=== PATIENT | female | born 2005 | race African-American/Black ===

== ENCOUNTER 2025-01-27 19:55 | Observation (INO) | payer OTHER, SELFPAY ==
--- OUTSIDE RECORDS SUMMARY | 2024-12-28 08:30 | XMS_ITS ---
Author Organization [facility] in [place] Address [address] [place] [address] Care Team Providers Care Plate Grainer Name Role Phone -None, Unknown Primary Care Provider Padmini Loja Unavailable [phone] REASON FOR VISIT New PT Hem Encounters Encounter Location Date Provider Diagnosis [facility] [place] [address] 12/28/2024 Padmini Oliva Plan Of Treatment No Information Progress Notes * Mirna GUPTAhDOB:2005 (19 yo F)Acc No.[id number]:12/28/2024 UNLOCKED PROGRESS NOTE Progress Notes Patient: Abigail LIRA :?Padmini Oliva M.D.:2005???Age:19 Y ???Sex:FemaleDate:12/28/2024Phone:[phone]:[address] [place], [place] [id number]:Unknown -None Subjective: * Chief Complaints: * 1 . New PT Hem. * Medical History: Objective: * Vitals: Assessment: Plan: * Treatment: * * Electronic signature of Padmini Oliva MD, [id number] on 01/27/2025 at 08:12 PM ESTSign off status: PendingVisit Status:?CANC (Cancelled) * Provider: Jose Oliva M.D. Date: Generated for Printing/Faxing/eTransmitting on:?01/27/2025 08:12 PM EST
--- OUTSIDE RECORDS SUMMARY | 2025-01-25 23:17 | XMS_ITS | Continuity of Care Document ---
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 Name Role Phone DavidLashawn Camairllo Primary Care Provider Nora Smith DO Attending Provider Kumar Freeman DO Attending Provider Chrissy Cantor MD Emergency Provider [phone] Care Teams Patient Care Team Team Status: Active Member Role/Relationship Status Dates Lashawn Marie DO Primary Care Provider Active Visit Care Team Team Status: Inactive Member Role/Relationship Status Dates Lashawn Marie DO Primary Care Provider Active Start: December 13, 2024 End: December 13, 2024KatLukasz Araujo ProviderActiveStart: December 13, 2024 End: December 13, 2024 Visit Care Team Team Status: Inactive Member Role/Relationship Status Dates Lashawn Marie DO Primary Care Provider Active Start: January 06, 2025 End: January 07, 2025Lukasz Trinh ProviderActiveStart: January 06, 2025 End: January 07, 2025 Patient Care Team Team Status: Inactive Member Role/Relationship Status Dates Lashawn Marie DO Primary Care Provider Active Start: January 26, 2025 End: January 26mariama Cantor MDEmerchi [facility] ProviderActiveStart: January 26, 2025 End: January 26, 2025 Chief Complaint and Reason for Visit Chief Complaint Admit Date 30 wks iup-leaking fluid December 13, 2024 7:31pm 33 wks 5 days-low abd pain-cramping Octo carlton 2024 10:27pm Rash January 26, 2025 2:08am Allergies, Adverse Reactions, Alerts Allergen Type Severity Reaction Last Updated Verified Status Cephalosporins Allergy Unknown hives January 26, 2025 2:21a m Yes Active Social History Smoking Status Status Start Date End Date Date of Observa tion Never smoked tobacco (finding) January 26, 2025 2:21am Observation Status Observation Response Date of Response Legal Sex Female (finding) Sex [facility]Pregnancy StatusYNovember 2024 Family History Relationship Condition Age at Onset Recorded Date/T lyudmila grandparent Unknown grandparentDeceasedUnknowngrandparentDeceasedUnknown Problems Active Problems Problem Diagnosis/Recorded Date Onset Date Status C omments Rash January 26, 2025 4:05am Unknown Active Inactive/Resolved Problems Problem Diagnosis/Recorded Date Onset Date Status C omments Vaginal bleeding in patient after first trimester with persistent low lying placenta September 19, 2024 11:28pm Unknown Resolved COVID-19 virus infectionSeptember 2020 12:37amUnknownResolvedProblem List clean-up per request of Phys. EHR CmteSprain of wristFebruary 2019 4:34pm UnknownResolvedProblem List clean-up per request of Phys. EHR CmteKnee sprain February 23, 2017 6:29pmUnknownResolvedProblem List clean-up per request of Phys. EHR CmteKnee sprainSeptember 2018 1:07pmUnknownResolvedProblem List clean-up per request of Phys. EHR CmteMyalgiaJuly 2020 1:21pmUnknown ResolvedProblem List clean-up per request of Phys. EHR CmteAcute viral syndrome January 22, 2019 2:08amUnknownResolvedProblem List clean-up per request of Phys. EHR CmteURI (upper respiratory infection)December 02, 2018 10:02pm UnknownResolvedProblem List clean-up per request of Phys. EHR CmteURI (upper respiratory infection)April 16, 2019 7:30pmUnknownResolvedProblem List clean-up per request of Phys. EHR CmteCoughNovember 2018 2:08amUnknown ResolvedProblem List clean-up per request of Phys. EHR CmteCoughJanuary 2019 7:56pmUnknownResolvedProblem List clean-up per request of Phys. EHR Cmte Non-cardiac chest painJanuary 2020 10:09pmUnknownResolvedProblem List clean-up per request of Phys. EHR CmtePain of round ligament affecting , antepartumJune 2024 3:36amUnknownResolvedMusculoskeletal chest painJanuary 2019 7:56pmUnknownResolvedProblem List clean-up per request of Phys. EHR CmteLeft knee painSeptember 2023 5:13pmUnknownResolvedAdverse reaction to eote-eyb-zcgstca medicationJuly 2023 11:55amUnknownResolved Contusion of noseOctober 2019 9:31pmUnknownResolvedProblem List clean-up per request of Phys. EHR CmteAnkle sprain and strainAugust 2018 10:14pm UnknownResolvedProblem List clean-up per request of Phys. EHR CmteAbdominal pain Luna 2023 10:58pmUnknownResolvedConstipationJanuary 2017 9:36pm UnknownResolvedProblem List clean-up per request of Phys. EHR CmteHemorrhagic cyst of right ovaryOctober 2022 2:02amUnknownResolvedAsthmaJanuary 2020 10:09pmUnknownResolvedProblem List clean-up per request of Phys. EHR Cmte Contusion of hand, rightJune 2021 9:12pmUnknownResolvedProblem List clean- up per request of Phys. EHR CmteRight ankle sprainOctober 2020 12:06am UnknownResolvedProblem List clean-up per request of Phys. EHR CmteRight ankle sprainOctober 2023 4:22pmUnknownResolvedForearm sprainAugust 2019 5:39pmUnknownResolvedProblem List clean-up per request of Phys. EHR CmteFoot sprainApril 2018 12:01amUnknownResolvedProblem List clean-up per request of Phys. EHR Cmte Medications Medication Status Dose Units Route Directions Qty Days Refills S tart Date Stop Date End Date Reason(s) Instructions Adherence Ibuprofen 400 mg tablet Discontinued 400 MG PO every 6 to 8 hours as needed for pain 20 0October 2017 11:00pmFebruary 10, 2018 11:42pmAlbuterol Sulfate 90 mcg/actuation Aerosol Powdr Breath FdshpgxvkUqauhfgpbvcq3XMVPPJSNDPWFQIRKEI 4-6 HOURS as needed for Shortness Of BreathSept2018 11:002018 11:01pmFluticasone Propionate (Flonase Allergy Relief) 50 mcg/actuation spray,tglpvixjokHowzdvjfsfmn0TPGXKCGUTPLVYPYY34B as needed for nasal congestion 19.80Se2018 11:00pmJanuary 21, 2019 11:01pmadminister into each nostrilAlbuterol Sulfate 90 mcg/actuation Hfa Aerosol MpjgqydJhqplncsicik8BHNJ VKGDYJPYHRB4R as needed for Shortness Of BreathDecember 2018 12:00amJune 2021 7:41pmIbuprofen 600 mg zoafciIioytocuhzoe916VIGZB0L as needed for tqau471Xsozgyq 2020 11:00pmJune 2021 7:41pmIbuprofen 600 mg Tablet Tkgrxvpwlhvr290DYMIVkixn 6 hours as needed for Ouci130Wpnz 2021 11:00pm July 12, 2023 7:16pmdo not exceed 4 doses in a 24 hour periodDiclofenac Sodium 1 % xijYxvyrx4YTHGMQWGLBtik times bkfod2233YajtdejsjNovember 21, 2023 11:00pm apply to single knee, ankle, foot; for foot includes sole/toes/top of foot UnknownAlbuterol Sulfate 90 mcg/actuation Hfa Aerosol InhalerDiscontinued February 23, 2017 12:00amJanuary 2017 7:45pmBenzonatate (Tessalon Perles) 100 mg RelfpvpHaxbknjnwefl555FWQQXqvuf times daily as needed for Cough12 0November 2018 12:00amNovember 2018 4:10pmAlbuterol Sulfate 90 mcg/actuation HFA aerosol sytnylfHihgzfptxshm8WAHDLDBMCCLRWLE9E as needed for shortness of breath or frmgtgrm201Qjaaypb 2019 12:00amJanuary 2019 6:24pmIbuprofen 800 mg uqkifyZlxrnvtcnwga813LGZXQbfsy times daily as needed for Nzld760Uukcwjl 2022 11:00pmApril 2023 7:16pmHydrocodone- Acetaminophen 5-325 mg cowtleKvqiwiprutjc7XJAYPS5N as needed for rwpg2275Biwfqbs pril 2023 7:16pmHemorrhagic cyst of right ovary Unspecified ovarian cyst, right sideAlbuterol Sulfate (Proventil Hfa) 90 mcg/actuation HFA aerosol ymixohxZelmjl0BPWSTHECVMLSACI69L as needed for shortness of breath or wheezingApril 2023 11:00pmFreeTextSi puffs as needed Inhalation every 4 hrs PRN cough/wheezing/shortness of breath; Note: Source Status: Takingprn; Refills: 1; Qty: 1 Inhaler; Provider: Mary Romero UnknownDicyclomine 10 mg mbdgllmOptypemfjsox52OTZDUrwru daily as needed for abdominal nuaw9042Naaik 2023 10:59pmSeptember 2023 5:05pmNaproxen 500 mg cbsyrnMdfeku098QISJWcukr fvxlo839Cfiyklb 2023 11:00pmUnknown Diphenhydramine Hcl (Allergy (Diphenhydramine)) 25 mg tdgvdrhDddrmr45EBJITwopr 6 hours as needed for jvtbnnl076Lfvqfcqr2024 12:00amUnknownFamotidine (Pepcid) 20 mg mlsfoiSvywag36XGRMNwclp nenxk708Tqlqoexo 12th, 2025 12:00am Unknown Relevant Diagnostic Tests and/or Laboratory Data Laboratory Results Test Collection Date/Time Result Date/Time Result Interpretation Reference Range Result Comment Performing Site Corrected White Blood Count January 26, 2025 2:43am January 26, 2025 3:04am 13.1 10*3/uL Above high normal 3.8-11.6 [facility] [id number] [address] [place] [address] 22114Iehdzlbvjbb WBC CountNovember 2024 2:43amNovember 2024 3:04am13.1 10*3/uLAbove high normal3.8-11.6FSt. [facility] [id number] [address] [place] [address] 38680Bgd Blood CountNovember 2024 2:43amNovemb2024 3:04am3.56 10*6/uLBelow low normal3.60-5.00[facility] [id number] [address] [place] [address] 65367LyewrcufxyKloiphxn 2024 2:43amNove2024 3:04am 8.6 g/dLBelow low ompylf99.8-15.4FSt. [facility] [id number] [address] [place] [address] 38573UtelcogxlhOsqsrrbx 2024 2:43amNove2024 3:04am 27.0 %Below low anqlsj88.0-46.4FSt. [facility] [id number] [address] [place] [address] 00875Pfzr Corpuscular VolumeNov2024 2:43amNove2024 3:04am75.9 fLBelow low elblse75-989ZkdjpxwkkK[facility] [id number] [address] [place] [address] 64739Ldey Corpuscular HemoglobinNovember 2024 2:43amNove2024 3:04am24.2 pgBelow low .7-34.3FSt. [facility] [id number] [address] [place] [address] 76945Vjzt Corpuscular Hemoglobin ConcentNovember 2024 2:43am January 26, 2025 3:04am31.9 g/dLBelow low seqqyc32.0-35.0[facility] [id number] [address] [facility] 30807Erg Cell Distribution WidthNovember 2024 2:43amNove2024 3:04am17.4 %Above high yvytpr86.9-15.3FSt. [facility] [id number] [address] [facility] 78679Tmxumhsu CountNovember 2024 2:43amNove2024 3:91il045 10*3/jB563-562TgmdyonnkK[facility] [id number] [address] [facility] 54228Bcwa Platelet VolumeNovember 2024 2:43amNove2024 3:04am7.5 fL6.3-10.7FSt. [facility] [id number] [address] [facility] 80081Fcidylsu Distribution WidthNovember 2024 2:43amNove2024 3:39am18.33 %0.00-20.00[facility] [id number] [address] [facility] 34477Fxndujyijhw (%) (Auto)January 26, 2025 2:43amNove2024 3:39am72.8 %.[facility] [id number] [address] [facility] 38955Xqkksqbputo (%) (Auto)January 26, 2025 2:43amNove2024 3:39am15.5 %.[facility] [id number] [address] [facility] 04555Vbayzqanw (%) (Auto)January 26, 2025 2:43amNove2024 3:39am10.5 %.[facility] [id number] [address] [facility] 79074Udobhgxnmmb (%) (Auto)January 26, 2025 2:43amNove2024 3:39am0.8 %.[facility] [id number] [address] [facility] 74691Uxydrkhvb (%) (Auto)January 26, 2025 2:43amNovemb2024 3:39am0.4 %.[facility] [id number] [address] [facility] 59387Dwzcmtrie RBC Relative Count (auto)January 26, 2025 2:43am January 26, 2025 3:39am0.4 /100{WBC}0-0.5FSt. [facility] [id number] [address] [place], [place] [address]Neutrophils # (Auto)January 26, 2025 2:43amNovemb2024 3:39am9.5 10*3/uLAbove high normal1.8-7.7FSt. [facility] [id number] [address] [place] [address] 19441Uyvqjrodhqi # (Auto)January 26, 2025 2:43amNove2024 3:39am2.0 10*3/uL1.00-4.8[facility] [id number] [address] [place] [address] 90106Uscqasaov # (Auto)January 26, 2025 2:43amNove2024 3:39am1.4 10*3/uLAbove high normal0.0-0.8[facility] [id number] [address] [place] [address] 74845Hvflwbbhbpy # (Auto)January 26, 2025 2:43amNove2024 3:39am0.1 10*3/uL0.0-0.45[facility] [id number] [address] [place] [address] 72212Iyekarooe # (Auto)January 26, 2025 2:43amNove2024 3:39am0.0 10*3/uL0.0-0.2FSt. [facility] [id number] [address] [place] [address] 61687Map Blood Cell MorphologyNov2024 2:43amNove2024 3:39amN/AFSt. Mary's Medical [facility] [id number] [address] [place] [address] 14112VkcrcdqtstgceKqgaeflt 12th, 2025 2:43amNove2024 3:39amSlightKettering Health [facility] [id number] [address] [place] [address] 47425HniqwvwpcbjrbiLqepsdyd 12th, 2025 2:43amNove2024 3:39amS[facility] [id number] [address] [facility] 39573BdgekkyyfgetOmfbjgcx 2024 2:43amNoveer 2024 3:39amModerateKettering Health [facility] [id number] [address] [facility] 09561RvnsolkdtjstYnapidhl 2024 2:43amNovemb2024 3:39amModeraThe [facility] [id number] [address] [facility] 34405EvmrmhsldezjVwkbania 2024 2:43amNovember 2024 3:39[facility] [id number] [address] [facility] 39897Hvcnuoru EstimateNovember 2024 2:43amNovember 2024 3:39amNormalNormalK[facility] [id number] [address] [facility] 68795Yerojvbp Morphology CommentNov2024 2:43amNove2024 3:39amN/AFire[facility] [id number] [address] [facility] 30011Mdxxm PlateletsNovember 2024 2:43amNove2024 3:39amSChildren[facility] [id number] [address] [facility] 79720X-Rjuza Quantitative (PE/DVT)January 26, 2025 2:43amNove2024 3:84xz688 ng/mLAbove high normal0-243The reference range for D-dimer is <243 ng/mL D-dimer units.D-dimer results must be used in conjunction with a clinicalpretest probability (PTP) assessment model for deep veinthrombosis (DVT) and pulmonary embolism (PE). Results <230ng/mL d-dimer units can be used as a negative predictor inpatients with low or moderate probability for DVT/PE.Results above the exclusion threshold of 230 ng/ml D-dimerunits for DVT/PE may indicate the need for furtherdiagnostic testing.D-Dimer can be increased in hospitalized patients due toco-morbid conditions.A hematocrit value greater than 55% may lead to inaccurate results in coagulation testing. Patients having hematocrit values >55% require a special collection tube for coagulation studies. Please contact the laboratory at [phone] for redraw instructions. [facility] [id number] [address] [facility] 72194Mpgdx ColorSeptember 2024 6:55pmSeptember 2024 7:34pmYellowYelMemorial Hospital [facility] [id number] [address] [facility] 20231Htvmw ColorOctober 2024 9:50pmOctober 2024 10:16pm YellowYelMemorial [facility] [id number] [address] [facility] 11919Dlgmh AppearanceSeptember 2024 6:55pmSeptember 2024 7:34pmClearClearKettering Health [facility] [id number] [address] [facility] 75013Cmxpp AppearanceOctober 2024 9:50pmOctober 2024 10:16pmCloudyAbnormal (applies to non-numeric results)[facility] [id number] [address] [facility] 43695Lqqhx Specific GravitySeptember 2024 6:55pmSeptember 2024 7:34pm1.0221.001-1.030[facility] [id number] [address] [facility] 68605Unajy Specific GravityOctober 2024 9:50pmOctober 2024 10:16pm1.0231.001-1.030[facility] [id number] [address] [facility] 70315Nxmiv pHSeptember 2024 6:55pmSeptember 2024 7:34pm 7.05.0-9.0[facility] [id number] [address] [facility] 08857Ncyns pHOctober 2024 9:50pmOctober 2024 10:16pm6.5 5.0-9.0[facility] [id number] [address] [facility] 61506Aownz Leukocyte EsteraseSeptember 2024 6:55pmSeptember 2024 7:34pm3+Above high normalNegativeKettering Health [facility] [id number] [address] [facility] 03067Tcgjz Leukocyte EsteraseOctober 2024 9:50pmOctober 2024 10:16pm2+Above high normalNegativeKettering Health [facility] [id number] [address] [facility] 94735Pfsxs NitriteSeptember 2024 6:55pmSeptember 2024 7:34pmNegativeNegativeFirSumma Health [facility] [id number] [address] [facility] 43485Yqnef NitriteOctober 2024 9:50pmOctober 2024 10:16pmNegativeNegativeFirSumma Health [facility] [id number] [address] [facility] 58914Mvuyk ProteinSeptember 2024 6:55pmSeptember 2024 7:34pm20 mg/dLAbove high normalNegativeKettering Health [facility] [id number] [address] [facility] 25353Qsoeq ProteinOctober 2024 9:50pmOctober 2024 10:16pm20 mg/dLAbove high normalNegativeKettering [facility] [id number] [address] [facility] 76762Zumon Glucose (UA)December 13, 2024 6:55pmSeptember 2024 7:34pmNormal mg/dLNormalKettering Health [facility]tr [id number] [address] [facility] 65203Aseex Glucose (UA)January 06, 2025 9:50pmOctober 2024 10:16pmNormal mg/dLNormalKettering Health [facility] [id number] [address] [facility] 16771Axuwz KetonesSeptember 2024 6:55pmSeptember 2024 7:34pmNegativeNegativeFirSumma Health [facility] [id number] [address] [facility] 62551Vrchn KetonesOctober 2024 9:50pmOctober 2024 10:16pmNegativeNegativeFirSumma Health Barber[facility] [id number] [address] [facility] 32845Ceugm UrobilinogenSeptember 2024 6:55pmSeptember 2024 7:34pm3 mg/dLAbove high normalNormalKettering Health [facility] [id number] [address] [facility] 55200Zelsm UrobilinogenOctober 2024 9:50pmOctober 2024 10:16pm4 mg/dLAbove high normalNormalKettering Health [facility] [id number] [address] [facility] 86757Hqpow BilirubinSeptember 2024 6:55pmSeptember 2024 7:34pmNegativeNegativeKettering Health [facility] [id number] [address] [facility] 14988Eopzq BilirubinOctober 2024 9:50pmOctober 2024 10:16pmNegativeNegativeKettering Health [facility] [id number] [address] [facility] 26589Utura Occult BloodSeptember 2024 6:55pmSeptember 2024 7:34pmNegativeNegativeKettering Health [facility] [id number] [address] [facility] 28749Efzro Occult BloodOctober 2024 9:50pmOctober 2024 10:16pmNegativeNegativeKettering Health [facility] [id number] [address] [facility] 20314Lzjfj RBCSeptember 2024 6:55pmSeptember 2024 7:42pm 1-2 [HPF]0-4FSt. [facility] [id number] [address] [facility] 53781Dqydc RBCOctober 2024 9:50pmOctober 2024 10:25fi3-4 [HPF]0-4FSt. [facility] [id number] [address] [facility] 52194Gulhs WBCSeptember 2024 6:55pmSeptember 2024 7:42pm 3-4 [HPF]0-4FSt. [facility] [id number] [address] [facility] 83025Altig WBCOctober 2024 9:50pmOctober 2024 10:89gj7-9 [HPF]0-4FSt. [facility]'s [facility] [id number] [address] [facility] 62107Wovml WBC ClumpsOctober 2024 9:50pmOctober 2024 10:29pmFew [LPF]Above high normalNone SeenKettering Health [facility] Ctr [id number] [address] [facility] 93715Oikbd Squamous Epithelial CellsSeptember 2024 6:55pm Annabella 2024 7:80ik7-6 [HPF]Above high normal0-2FSt. Mary's Medical [facility] [id number] [address] [facility] 71544Ikaoy Squamous Epithelial CellsOctober 2024 9:50pmOctober 2024 10:39gn7-3 [HPF]0-2FSt. Mary's [facility] [id number] [address] [facility] 92120Whlxo Other CrystalsOctober 2024 9:50pmOctober 2024 10:29pmRare [HPF][facility] [id number] [address] [facility] 27934Mydus BacteriaSeptember 2024 6:55pmSeptember 2024 7:42pmNone seen [HPF]None SeenKet[facility] [id number] [address] [facility] 59626Frmqw BacteriaOctober 2024 9:50pmOctober 2024 10:29pmNone seen [HPF]None [facility] [id number] [address] [facility] 50236Jrahb Hyaline CastsSeptember 2024 6:55pmSeptember 2024 7:42pmNone [LPF]0-8[facility] [id number] [address] [facility] 76648Soswp Hyaline CastsOctober 2024 9:50pmOctober 2024 10:29pmNone [LPF]0-8[facility] [id number] [address] [facility] 20840Oyoih MucusSeptember 2024 6:55pmSeptember 2024 7:42pm1+ [LPF]Abnormal (applies to non-numeric results)[facility] [id number] [address] [facility] 13323Ombpj MucusOctober 2024 9:50pmOctober 2024 10:29pm Rare [LPF][facility] [id number] [address] [facility] 88346Omlso Membranes Rupture (PAMG-1)December 13, 2024 7:06pm December 13, 2024 7:31pmNegativeNegativeKettering Health [facility] [id number] [address] [facility] 96362Nfnkx FibronectinSeptember 2024 7:06pmSeptember 2024 7:51pmNegativeNegativeKettering Health [facility] [id number] [address] [facility] 94167Pvmvqti LevelNov2024 2:43amNove2024 3:23am93 mg/yP63-225XVT recommended reference rangeRandom Glucose Reference Range is dependent on time and content of last meal. Glucose of more than 200 mg/dL in a nonstressed, ambulatory subject supports the diagnosisof Diabetes Mellitus.[facility] [id number] [address] [facility] 12203Tnnkc Urea NitrogenJanuary 26, 2025 2:43amNove2024 3:23am10 mg/dL7-25[facility] [id number] [address] [facility] 06819DaqlvqhiwaOddwiivy 12th, 2025 2:43amNove2024 3:23am 0.52 mg/dLBelow low normal0.60-1.20[facility] [id number] [address] [facility] 61048Uhvyrzzic GFR (CKD-EPI)January 26, 2025 2:43amNove2024 3:23am> 60.0 mL/MinKettering Health [facility] Ctr [id number] [address] [facility] 43089Nxbvnx LevelNov2024 2:43amNove2024 3:04dc210 mmol/LBelow low zglifi003-534LyjqozceyKettering Health [facility]tr [id number] [address] [facility] 45268Okehmlltr LevelNovember 2024 2:43amNovember 2024 3:23am3.8 mmol/L3.5-5.1FSt. Mary's Medical [facility] [id number] [address] [facility] 62510Cpwiycta LevelNov2024 2:43amNovember 2024 3:35tz816 mmol/C64-534MggujuqbkKettering Health [facility]tr [id number] [address] [facility] 11104Fsrbkj Dioxide LevelNovember 2024 2:43amNovember 2024 3:23am22.7 mmol/L21.0-31.0[facility] [id number] [address] [facility] 56590Garec GapNov2024 2:43amNovember 2024 3:23am 11.1 mEq/L6.0-15.0[facility] [id number] [address] [facility] 53552Qurjstq LevelNovember 2024 2:43amNovember 2024 3:23am8.7 mg/dL8.6-10.3FSt. Mary's [facility] [id number] [address] [facility] 11479Vcfgpboc Creatinine Clearance (ChemNovember 2024 2:43am January 26, 2025 3:31ke395.87[facility] [id number] [address] [facility] 51804Wfako Amphetamines ScreenOctober 2024 9:50pmOctober 2024 10:43pmNegativeNegativeKettering Health [facility] [id number] [address] [facility] 11254Odxxb Barbiturates ScreenOctober 2024 9:50pmOctober 2024 10:43pmNegativeNegativeKettering Health [facility] [id number] [address] [facility] 86675Wthmj Benzodiazepines ScreenOctober 2024 9:50pmOctober 2024 10:43pmNegativeNegativeKettering Health [facility] [id number] [address] [facility] 50682Odhlk Cocaine ScreenOctober 2024 9:50pmOctober 2024 10:43pmNegativeNegativeKettering Health [facility] [id number] [address] [facility] 76068Kftxl Opiates ScreenOctober 2024 9:50pmOctober 2024 10:43pmNegativeNegativeKettering Health [facility] [id number] [address] [facility] 66096Ecjio Phencyclidine ScreenOctober 2024 9:50pmOctober 2024 10:43pmNegativeNegativeThese are unconfirmed results and should not be used for legal purposes. Drug Cut-Off Concentration: AMPH 1000 ng/mL LORAINE 200 ng/mL MERCEDES 200 ng/mL COCM 300 ng/mL OP 300 ng/mL PCP 25 ng/mLKettering Health [facility] Ctr [id number] [address] [facility] [address] Vital Signs Vital Reading Result Reference Range Collection Date/Time Height 65 [in_i] December 13, 2024 7:99vjXwgoui67.92 kgSeptember 2024 7:02pmBody Hbljdezdczs41.6 [degF]97.6-99.0September 2024 7:30pmHeart Rate97 /min 60-100Sept2024 7:30pmRespiratory rate16 /cwn50-98Kawjlicew 2024 7:30pmOxygen saturation by Pulse azbrerfi92 %95-100September 2024 7:30pmBP Yrygwuce597 mm[Hg]100-140September 2024 7:30pmBP Lfjrcqtib39 mm[Hg]60-100September 2024 7:30pmBody Ahzpczkwauh65.4 [degF]97.6-99.0 January 06, 2025 9:46pmHeart Rate88 /xfb23-993Poedoyc 2024 9:46pm Respiratory rate18 /mbx40-95Jppjdgt 23rd, 2025 9:46pmBP Bpjdfpbj095 mm[Hg] 100-140Oct2024 9:46pmBP Beazvrqxa13 mm[Hg]60-100October 2024 9:52wcBfzotv73 [in_i]January 26, 2025 2:56dpAypdkn85.90 kgJanuary 26, 2025 2:21amBody Bthujqjkuce85.2 [degF]97.6-99.0January 26, 2025 2:21amHeart Rate 98 /sns02-238IymedagqJanuary 26, 2025 2:21amRespiratory rate18 /mwc45-54RdboxagdJanuary 26, 2025 2:21amOxygen saturation by Pulse ttxjuovy29 %95-100January 26, 2025 2:21amBP Roosmwwl323 mm[Hg]100-140January 26, 2025 2:21amBP Tkgzhblkz23 mm[Hg]60-100Nov2024 2:21am Advance Directives Advance Directive Response Recorded Date/ Time Advance Directives No January 02, 2017 10:05am Insurance Providers Guarantor Abigail Gupta Address [address] [place] [address]Uftzaby Info.Home Phone: Coverage Status Update:2024 Payer Group Member ID Coverage Type Subscriber Relationship to Subscriber Effective Date Expiration Date MMO Id: [id number] [place] Id: [id number] [address] [facility] [address] Home Phone: Anth BC/BS Id: [id number] Justin Id: [id number] [address] [facility] [address] [facility]: [facility] Id: [id number] A Lanier Id: [id number] [address] [place] [address] Home Phone: Email: [email or web address] Advantage Wallarryt Id: [id number] A Lanier Id: [id number] [address] [place] [address] Home Phone: Email: [email or web address] [employer] Medicaid [id number] A Lanier Id: [id number] [address] [facility] [address] Home Phone: Email: [email or web address] NIRAV Id: [id number] [place] Id: [id number] [address] [facility] [address] Home Phone: [place] Id: [id number] Justin Id: [id number] [address] [facility] [address] Home Phone: Encounters Encounter Location(s) Arrival/Admit Date Discharge/Departure Date Discharge/Departure Disposition Provider(s) Departed Clinical -[facility] December 13, 2024 7:31pm December 13, 2024 9:03pm Discharged to home care or self care (routine discharge) Nora Smith DO Departed Clinical -3 [facility] - O/P January 06, 2025 10:27pm January 07, 2025 12:37am Discharged to home care or self care (routine discharge) Kumar Freeman DO Departed Emergency -Emergency Room January 26, 2025 2:08am January 26, 2025 4:16am Discharged to home care or self care (routine discharge) Plan of Treatment Future Tests Future scheduled test information is unavailable Pending Tests Pending diagnostic test information is unavailable Future Visits Future appointment information is unavailable Future Procedures Procedure Name Ordered Date Scheduled Date Admit Status Order January 06, 2025 9:39pm Oct edinson 2024 9:39pm Discharge Order January 06, 2025 11:41pm Octob er 2024 11:41pm Admit Status Order December 13, 2024 6:37pm S eptember 2024 6:37pm Discharge Order December 13, 2024 7:56pm Sept ember 29th, 2025 7:56pm Future Medications Future medication information is unavailable Patient Instructions Instruction Admit Date Antepartum Discharge Instructions ([facility] [place] December 13, 2024 7:31pm Antepartum Discharge Instructions ([facility] [place]) January 06, 2025 10:27pm Skin rash - ED discharge instructions No vember 2024 2:08am Goals Preferences Type Detail Treatment Intervention Code Status: Full Code Treatment Intervention Code Status: Full Code Hospital Discharge Instructions Additional Instructions Please return to emergency department for any new or worrisome symptoms including any difficulty breathing, worsening rash, vomiting, fever. Follow-up with your [employer]Y [employer]ATE [employer]SEMBLER later today as directed.
--- OUTSIDE RECORDS SUMMARY | 2025-01-27 20:13 | XMS_ITS | Clinical Summary ---
Author Organization [facility] Address [address] [place] [address] Care Team Providers Care Supervisor Waterworks Name Role Phone Lashawn Simmons Primary Care Provider [phone] Allergies Active AllergyReactionsCriticalityNoted DateCommentsCephalosporinsHives 12/21/2023 Medications MedicationSigDispense QuantityRefillsLast FilledStart DateEnd DateStatus albuterol HFA 90 mcg/act inhaler Inhale 2 puffs every 4 (four) hours if needed for wheezing.Active multivitamin () 27-0.8 MG tablet Indications: examination or test, positive result ([facility])Take 1 tablet by mouth Daily 30 tablet 1105Active albuterol HFA (Ventolin HFA) 90 mcg/act inhaler Indications:History of asthmaInhale 2 puffs every 4 (four) hours if needed for wheezing 18 g 1108//033106/6Active ferrous sulfate (Fe Tabs) 325 (65 Fe) MG EC tablet Indications:Anemia during in third trimester ([facility])Take 1 tablet (325 mg) by mouth in the morning and 1 tablet (325 mg) before bedtime. Do not crush, chew, or split. 60 tablet 1110/6Active docusate sodium (Colace) 100 MG capsule Indications:Anemia during in third trimester ([facility])Take 1 capsule (100 mg) by mouth in the morning and 1 capsule (100 mg) before bedtime. 60 capsule 310///6Active Encounters DateTypeDepartmentCare HzqqGpjcyhcdttl34/29/2025 4:30 PM EDTRoutine [facility] [address] [place] [address] Laurie Stapleton CNM Encounter for care of first , third trimester ([facility]) (Primary Dx); History of soxtso7101/12/2025amboo flowsheet [facility] [address] [place] [address] Laurie Stapleton CNM 01/06/2025External Result Encounter [facility] External Department Unsolicited Kumar Freeman, DO 01/06/2025External Result Encounter [facility] External Department Unsolicited Kumar Freeman, DO 12/16/2024 6:30 PM EDTAncillary Procedure [facility] [address] [place] [address] related condition in third trimester ([facility])12/16/2024Travel 12/16/2024Orders Only [facility] [address] [address] Laurie Stapleton CNM Anemia during in third trimester ([facility])12/16/2024Results Follow-Up [facility] [address] [place] [address] Priyanka Turner MA CBC, GLUCOSE, GESTATIONAL SCREEN (50G)-135 FOFMHD9012/14/20245951Hyireb71/29/2025 External Result Encounter [facility] External Department Unsolicited Nora Smith, DO 12/13/2024External Result Encounter [facility] External Department Unsolicited Nora Smith, DO 12/13/2024External Result Encounter [facility] External Department Unsolicited Nora Smith, DO 12/09/2024 2:30 PM EDTRoutine [facility] [address] [place] [address] Laurie Stapleton CNM Encounter for care of first , third trimester ([facility]) (Primary Dx); related condition in third trimester ([facility]); Screening for diabetes mellitus; Screening for iron deficiency vvdqch2912/09/2024amb flowsheet [place] [address] [place] [address] Laurie Stapleton CNM 11/10/2024 3:00 PM EDTRoutine [facility] [address] [place] [address] Laurie Stapleton CNM History of asthma (Primary Dx); Encounter for care of first , second trimester ([facility]) 11/10/2024[facility] flowsheet [facility] [address] [place] [address] Laurie Stapleton CNM from Last 3 Months Family History RelationNameStatusCommentsFatherDeceasedMotherAlive Social History Tobacco UseTypesPacks/DayYears UsedDateSmoking Tobacco: NeverSmokeless Tobacco: Never Tobacco Cessation:Counseling Given: Yes Alcohol UseStandard Drinks/WeekCommentsNever0 (1 standard drink = 0.6 oz pure alcohol)AUDIT-CAnswerDate RecordedQ1: How often do you have a drink containing alcohol?Never01/20/2023Q2: How many drinks containing alcohol do you have on a typical day when you are drinking?Patient does not drink01/20/2023Q3: How often do you have six or more drinks on one occasion?Never3PHQ-2AnswerDate RecordedPatient Health Questionnaire-2 Ozhek470/30/2023Estimated Date of TbyirjiuGofhnqwfMro23/11/2025ased on last menstrual period of 05/20/2024 (Exact Date)Sex and Gender InformationValueDate RecordedSex Assigned at BirthNot on fileLegal ZprSgirhu72/15/2023 8:22 PM EDTGender IdentityNot on fileSexual OrientationNot on file Last Filed Vital Signs Vital SignReadingTime TakenCommentsBlood Nbayzrjh050/7010 4:17 PM EDT Xjupa0244 6:18 PM OLCVafgjgxjhlu42.5 ??C (97.7 ??F)07/07/2024 6:18 PM EDTRespiratory Rate--Oxygen Cymcxkrudi37%07/07/2024 6:18 PM EDTInhaled Oxygen Concentration--Xvqrbx27.4 kg (186 lb)01/12/2025 4:17 PM KFTDerxsx178.1 cm (5' 5 )11/29/2020 12:00 PM EDTBody Mass Index-- Plan of Treatment DateTypeDepartmentCare Team (Latest Contact Info)Mnykxglkaem90/19/2025 1:30 PM ESTRoutine [facility] [address] [place] [address] Laurie Stapleton, [place] [address] [place] [address] Procedures Procedure NamePriorityDate/TimeAssociated DiagnosisCommentsOB URINE DRUG SCREEN (NO THC)STAT1 10:50 PM EDT URINALYSIS XMJPBCJZYE15/23/2025 10:50 PM EDT OB FOLLOW UP TRANSABDOMINAL IUVOHRMIYuaixja49/02/2025 6:52 PM EDT related condition in third trimester ([facility]) WYRLVMVLQSBDIMK90/29/2025 8:06 PM EDT AMNISURE(PAMG-1)STAT12/13/2024 8:06 PM EDT URINALYSIS SCARAHUXRC21/29/2025 7:55 PM EDT URINALYSIS, MANUAL VSFSXRTR46/29/2025 7:55 PM EDT GLUCOSE, GESTATIONAL SCREEN (50G)-135 FKUQFTSxlcnac04/25/2025 2:50 PM EDT Screening for diabetes mellitus DHLLysgykl27/25/2025 2:50 PM EDT Screening for iron deficiency anemia from Last 3 Months Results * OB URINE DRUG SCREEN (NO THC) (01/06/2025 10:50 PM EDT)ComponentValueRef Range Test MethodAnalysis TimePerformed AtPathologist SignatureAMPHETAMINE SCREEN,IXTFGSvhunqhfQskahvry91/23/2025 11:[address] [facility] CtrBARBITURATE SCREEN,RIMDMXkbqcpyiCyllwgvi28/23/2025 11:[address] [facility] CtrBENZODIAZEPINES SCREEN,OCDRORjlracphBlreeloc76/23/2025 11:[address] [facility] CtrCOCAINE SCREEN,URINENegativeNegative 01/06/2025 11:[address] [facility] CtrOPIATE SCREEN,URINE TtbmhdutLhymlfww52/23/2025 11:[address] [facility] PHENCYCLIDINE SCREEN, IGSOSAfqjjsosPmsuyvxc70/23/2025 11:[address] [facility] CtrComment: These are unconfirmed results and should not be used for legal purposes. ??Drug Cut-Off Concentration: ? AMPH 1000 ng/mL ? LORAINE ??200 ng/mL ? MERCEDES ??200 ng/mL ? COCM ??300 ng/mL ? OP ?300 ng/mL ? PCP ?25 ng/mL Specimen (Source)Anatomical Location / LateralityCollection Method / Volume Collection TimeReceived EuoqOcggy54/23/2025 10:50 PM EDT1 10:56 PM EDT Narrative [facility] - 01/06/2025 11:43 PM EDT Comment s/s of acute impairment Authorizing ProviderResult TypeResult StatusRichard A Visci DOLAB BLOOD ORDERABLESFinal ResultPerforming OrganizationAddressCity/State/ZIP CodePhone Number [facility] [address] [place] [address], [facility] [address] [place] [address] * (ABNORMAL) Urinalysis with reflex microscopic (01/06/2025 10:50 PM EDT) Only the most recent of2 resultswithin the time period is included. ComponentValueRef RangeTest MethodAnalysis TimePerformed AtPathologist Signature COLOR,FSKJXImexezCixuvb46/23/2025 11:[address] [facility] APPEARANCE,URINECloudy(AA)Clear01/06/2025 11:[address] [facility] CtrSPECIFICY GRAVITY,URINE1.0231.001 - 1.2904901/06/2025 11:[address] [facility] CtrPH,URINE6.55.0 - 9.010 11:[address] [facility] CtrLEUKOCYTE ESTERASE,URINE2+Cjtwdprf33/23/2025 11:16 PM [facility] CtrNITRITE,ZTMXIDasvxjttWyawqwbc17/23/2025 11:[address] [facility] CtrPROTEIN,MTXPA22Gmkugoij mg/dL01/06/2025 11:[address] [facility] CtrGLUCOSE,URINE (UA)NormalNormal mg/dL 01/06/2025 11:[address] [facility] CtrKETONES,URINENegative Tmznxkph73/23/2025 11:[address] [facility] CtrUROBILINOGEN,URINE4 Normal mg/dL01/06/2025 11:[address] [facility] CtrBILIRUBIN,URINE AcspxskzGdvbfqgg13/23/2025 11:[address] [facility] CtrOCCULT BLOOD,GNMEYZbfgnmcdAuvlqyrs10/23/2025 11:[address] [facility] RBC,URINE1-20 - 4 [HPF]01/06/2025 11:[address] [facility] WBC,URINE3-40 - 4 [HPF]01/06/2025 11:[address] [facility] CtrWBC CLUMP, URINEFewNone Seen [LPF]01/06/2025 11:[address] [facility] CtrSQUAMOUS EPITHELIAL CELL,URINE1-20 - 2 [HPF]01/06/2025 11:[address] [facility] CtrOTHE CRYSTALS,URINERare[HPF]01/06/2025 11:[address] [facility] CtrBACTERIA,URINENone SeenNone Seen [HPF]01/06/2025 11:[address] [facility] CtrHYALINE CASTS,URINENone0 - 8 [LPF]01/06/2025 11:[address] [facility] CtrMUCUS,URINERare[LPF]01/06/2025 11:[address] [facility] CtrSpecimen (Source)Anatomical Location / LateralityCollection Method / VolumeCollection TimeReceived LsddCwnhf75/23/2025 10:50 PM EDT1 10:56 PM EDT Narrative [facility] - 01/06/2025 11:29 PM EDT Comment c/o urinary symptoms or increased blood pressure Name Collection Type:: Clean-Voided Midstream Authorizing ProviderResult TypeResult StatusRichard A Visci DOLAB URINE ORDERABLESFinal ResultPerforming OrganizationAddressCity/State/ZIP CodePhone Number [facility] [address] [place] [address], [facility] [address] [place] [address] * OB follow up transabdominal approach (12/16/2024 6:52 PM EDT)Anatomical RegionLateralityModalityBodyUltrasoundSpecimen (Source)Anatomical Location / LateralityCollection Method / VolumeCollection TimeReceived Time12/19/2024 4:47 PM EDT Impressions 12/20/2024 8:00 AM EDT 1. Single, live intrauterine , current sonographic age of 30 weeks and 4 days, with an estimated date of delivery of February 20, 2025. 2. Comparison made with prior examination of October 03, 2024 delivery at that time was February 21, 2025, and weight percentile was 65%. * ??Estimated Weight (g) by Percentile is based upon an accurate estimated age based onlast menstrual period. ?? TRANSCRIBED BY: ? ELECTRONICALLY SIGNED BY: Gabriel Ngo MD Narrative 12/20/2024 8:00 AM EDT FINDINGS: A single, live intrauterine is present with normal cardiac rate of ??158 beats per minute. Normal activity and amniotic fluid volume. Amniotic fluid index is 13 ??cm. ??Cephalicpresentation. Morphology is grossly normal. The cervix is long and closed, ?? 4.6 cm. ??The placenta is anterior, Grade 1 not associated with the cervical os. ??The current sonographic age is 30 weeks and 4 days, based on the following measurements: These measurements result in an estimated date of delivery of ??February 20, 2025 ?The current estimated weight is ??1582 ??grams (3 ??pound, 8 ounces). ?? Weight (g) by Percentile ??57.5 % * Procedure Note Gabriel Ngo MD - 12/20/2024 FINDINGS: A single, live intrauterine is present with normal cardiacrate of 158 beats per minute. Normal activity and amniotic fluidvolume. Amniotic fluid index is 13 cm. Cephalic presentation. Morphologyis grossly normal. The cervix is long and closed, 4.6 cm. The placentais anterior, Grade 1 not associated with the cervical os. The currentsonographic age is 30 weeks and 4 days, based on the followingmeasurements: These measurements result in an estimated date of delivery of February The current estimated weight is 1582 grams (3 pound, 8ounces). Weight (g) by Percentile 57.5 % * IMPRESSION: 1. Single, live intrauterine , current sonographic age of 30weeks and 4 days, with an estimated date of delivery of February. 2. Comparison made with prior examination of October 03, 2024 delivery atthat time was February 21, 2025, and weight percentile was 65%. * Estimated Weight (g) by Percentile is based upon an accurateestimated age based on last menstrual period. TRANSCRIBED BY: ELECTRONICALLY SIGNED BY: Gabriel Ngo MD Authorizing ProviderResult TypeResult StatusValenew Stapleton [facility] US PROCEDURESFinal Result * AMNISURE(PAMG-1) (12/13/2024 8:06 PM EDT)ComponentValueRef RangeTest Method Analysis TimePerformed AtPathologist SignatureAMNISURENegativeNegative 12/13/2024 8:31 PM [facility] CtrSpecimen (Source) Anatomical Location / LateralityCollection Method / VolumeCollection Time Received TimeOtherTopography unknown / Jzgorky7312/13/2024 8:06 PM EDT09/ 8:15 PM EDT Narrative [facility] - 12/13/2024 8:31 PM EDT Comment For suspected repture of membranes Authorizing ProviderResult TypeResult StatusKathleen E Rinkes DOLAB BLOOD ORDERABLESFinal ResultPerforming OrganizationAddressCity/State/ZIP CodePhone Number [address] [place] [address], [facility] [address] [place] [address] * fibronectin (12/13/2024 8:06 PM EDT)ComponentValueRef RangeTest Method Analysis TimePerformed AtPathologist SignatureFETAL FIBRONECTINNegative Mlbofcqw79/29/2025 8:[address] [facility] CtrSpecimen (Source) Anatomical Location / LateralityCollection Method / VolumeCollection Time Received TimeOtherTopography unknown / Fyengnl0112/13/2024 8:06 PM EDT12/13/2024 8:15 PM EDT Narrative [facility] - 12/13/2024 8:51 PM EDT Comment patients 22 - 34 6/7 weeks prior to vaginal exam Authorizing ProviderResult TypeResult StatusKathleen E Rinkes DOLAB BODY FLUIDS AND STOOLS ORDERABLESFinal ResultPerforming OrganizationAddressCity/State/ZIP CodePhone Number [facility] [address] [place] [address], [facility] [address] [place] [address] * Urinalysis, manual only (12/13/2024 7:55 PM EDT)ComponentValueRef RangeTest MethodAnalysis TimePerformed AtPathologist SignatureCOLOR,URINEYellowYellow 12/13/2024 8:[address] [facility] CtrAPPEARANCE,URINEClearClear 12/13/2024 8:[address] [facility] CtrSPECIFICY GRAVITY,URINE 1.0221.001 - 1.9551412/13/2024 8:[address] [facility] CtrPH,URINE 7.05.0 - 9.009 8:[address] [facility] CtrLEUKOCYTE ESTERASE,URINE3+Rpelsqmj53/29/2025 8:[address] [facility] NITRITE,DJUCDMgqlsnbrDefwokyr96/29/2025 8:[address] [facility] CtrPROTEIN,NCXRJ90Zhcgrzcq mg/dL12/13/2024 8:[address] [facility] CtrGLUCOSE,URINE (UA)NormalNormal mg/dL12/13/2024 8:[address] [facility] CtrKETONES,ETAFIOcgzivwwAukqhhrw46/29/2025 8:34 PM EDT [facility] CtrUROBILINOGEN,DRVKL2Adppfz mg/dL12/13/2024 8:[address] [facility] CtrBILIRUBIN,FCKELNbxifnznDrmcywyf22/29/2025 8:[address] [facility] CtrOCCULT BLOOD,URINENegativeNegative 12/13/2024 8:[address] [facility] CtrSpecimen (Source) Anatomical Location / LateralityCollection Method / VolumeCollection Time Received DmtvTjufy24/29/2025 7:55 PM EDT12/13/2024 8:29 PM EDT Narrative [facility] - 12/13/2024 8:34 PM EDT Comment c/o urinary symptoms or increased blood pressure Name Collection Type:: Voided Authorizing ProviderResult TypeResult StatusKathleen E Rinkes DOLAB URINE ORDERABLESFinal ResultPerforming OrganizationAddressCity/State/ZIP CodePhone Number [facility] [address] [place] [address], [facility] [address] [place] [address] * GLUCOSE, GESTATIONAL SCREEN (50G)-135 CUTOFF (12/09/2024 2:50 PM EDT)Component ValueRef RangeTest MethodAnalysis TimePerformed AtPathologist Signature GLUCOSE, GESTATIONAL SCREEN (50G)-135 NJMSVY003<135 mg/dLQUESTSpecimen (Source)Anatomical Location / LateralityCollection Method / VolumeCollection TimeReceived Time12/09/2024 2:50 PM EDT12/09/2024 2:51 PM EDT Narrative Resulting Agency Comment Performing Organization Information ?Site ID: QPT ?Name: [facility] ?Address: [address] [place] [address], [address] [place] [phone] ?Director: Sourav Philippe MD Authorizing ProviderResult TypeResult StatusValenew Stapleton CNMLAB BLOOD ORDERABLESFinal ResultPerforming OrganizationAddressCity/State/ZIP CodePhone Number [facility] * (ABNORMAL) CBC (12/09/2024 2:50 PM EDT)ComponentValueRef RangeTest Method Analysis TimePerformed AtPathologist SignatureWHITE BLOOD CELL COUNT10.63.8 - 10.8 Thousand/uLQUESTRED BLOOD CELL COUNT3.08(L)3.80 - 5.10 Million/uLQUEST HEMOGLOBIN8.5(L)11.7 - 15.5 g/qUQJJFYNOHQBMMFQI32.2(L)35.0 - 45.0 %QUESTMCV 88.380.0 - 100.0 iFGEVGIMVB32.627.0 - 33.0 ewKQPUICZLU99.3(L)32.0 - 36.0 g/dL QUESTComment: For adults, a slight decrease in the calculated MCHC value (in the range of 30 to 32 g/dL) is most likely not clinically significant; however, it should be interpreted with caution in correlation with other red cell parameters and the patient's clinical condition. RDW13.311.0 - 15.0 %QUESTPLATELET HNFLY551887 - 400 Thousand/uLQUESTMPV9.07.5 - 12.5 fLQUESTSpecimen (Source)Anatomical Location / LateralityCollection Method / VolumeCollection TimeReceived TimeBloodVenous blood specimen / Unknown 12/09/2024 2:50 PM EDT12/09/2024 2:51 PM EDT Narrative Resulting Agency Comment Performing Organization Information ?Site ID: QPT ?Name: [facility] ?Address: [address] [place] [phone] ?Director: Sourav Philippe MD Authorizing ProviderResult TypeResult StatusValenew Stapleton CNMLAB BLOOD ORDERABLESFinal ResultPerforming OrganizationAddressCity/State/ZIP CodePhone Number [facility] from Last 3 Months Insurance Care Teams Team MemberRelationshipSpecialtyStart DateEnd Date Lashawn Simmons DO [address] [facility] [place] [address] PCP - GeneralFamily Medicine11/10/24
--- OUTSIDE RECORDS SUMMARY | 2025-01-27 20:13 | XMS_ITS | Patient Health Record ---
Author Organization [facility] [place] Address [address] [place] [address] Care Team Providers Care Transportation Logistics Internship Name Role Phone -None, Unknown Primary Care Provider Padmini Loja Unavailable [phone] Reason For Referral No Information Plan Of Treatment No Information Insurance Providers Payer Name Payer Address Payer Phone Subscriber Number Group Number Insured Name Patient Relationship to Insured Coverage Start Date Coverage End Date [facility] [address] [address] [place], [place] [id number] Abigail Gupta Self - patient is the insured
--- OUTSIDE RECORDS SUMMARY | 2025-01-27 20:13 | XMS_ITS | Patient Health Record ---
Author Organization [facility] Address [address] [place] [address] Care Team Providers Care Supervisor Game [employer] Name Role Phone Tuan Urena Primary Care Provider Allergies No Known Allergies Reason For Referral No Information Medications Medication SIG (Take, Route, Frequency, Duration) Notes Start Date End Date Status Albuterol Sulfate HFA 108 (9 0 Base) MCG/ACT Aerosol Solution 1 puff as needed Inhalation every 4 hrs Active Social History Tobacco Use: Social History Observation Description Date Details (start date - stop date) Never Smoker NA - NA Social History GeneralSocial InfoQuestionAnswerNotesTransition of Care:ER/UC/hospital since last office visit?NoSpecialist seen since last office visit?NoSubstance abuse/mental health issues of patient/familyPatient -DeniesAbility to understand healthcare/treatmentPatient:FairCaregiver:GoodTobacco Screen:Are you a:never smokerSocial/Support Concerns:Patient:NoFamily/Caregiver:NoBehaviors affecting healthPoor/Risky Behaviors:Denies-Communication Barrier:Language Barrier?:No Drug/Alcohol:Social InfoQuestionAnswerNotesAUDIT-C (Standard)Did you have a drink containing alcohol in the past year?NyFhvjyv0YwsleaxugqcsvgRgfeyocq Problems Problem Type SNOMED Code ICD Code Onset Dates Problem Status W/U Status Risk Notes Problem Exercise-induced asthma (51311935) Exerci se-induced asthma (J45.990) ActiveconfirmedProblemDizziness and giddiness (404381614)Orthostatic lightheadedness (R42)Activeconfirmed Plan Of Treatment No Information Insurance Providers Payer Name Payer Address Payer Phone Subscriber Number Group Number Insured Name Patient Relationship to Insured Coverage Start Date Coverage End Date [employer] [place] Medicaid [address] [place] [address] [id number] [place] - patient is the [id number] 2022Wrap [facility] [place] BCBSP[address] [place] [id number], [place] MEAHSelf - patient is the [id number] 2022z[employer]-termed [address] [place] [id number], [place] MEAHSelf - patient is the [id number] CF after [employer]-termed [address] [place] [id number], DE MEAHSelf - patient is the [id number] Medical (General) History Medical History History ICD Code asthma
[2025-01-27 20:28] VITALS: BP 116/68; PULSE 90
[2025-01-27 20:29] VITALS: TEMP 36.2
[2025-01-27 20:46] LABS: Glucose Urine UA NEGATIVE (NEGATIVE)
[2025-01-27 21:21] LABS: Cast Seen? NONE SEEN #/LPF (NONE SEEN); Crystals Seen? None Seen #/HPF (None Seen)
[2025-01-27 21:28] LABS: Urine Culture Indicated YES-LC
[2025-01-27 21:50] LABS: Hematocrit 26.3 % (36.0-48.0); Hemoglobin 8.3 g/dL (12.0-16.0); Immature Granulocytes Abs Auto 0.16 10^3/uL (0.00-0.03); Immature Granulocytes Pct Auto 1.6 % (0.0-0.5); Lymphocytes Absolute Auto 1.6 10^3/uL (1.2-3.8); Mean Corpuscular HGB Conc 31.6 g/dL (29.9-35.2); Mean Corpuscular Hemoglobin 24.9 pg (26.7-34.0); Mean Corpuscular Volume 78.7 fL (81.0-99.0); Platelet Count 356 10^3/uL (150-450); Red Blood Count 3.34 10^6/uL (4.20-5.40); White Blood Count 10.3 10^3/uL (4.0-11.0)
[2025-01-27 22:01] LABS: Alanine Aminotransferase 18 U/L (14-59); Albumin Globulin Ratio 0.5; Albumin Level 2.4 g/dL (3.4-5.0); Alkaline Phosphatase 230 U/L (46-116); Anion Gap 10.4; Aspartate Amino Transferase 15 U/L (15-37); Blood Urea Nitrogen 7.0 mg/dL (7.0-18.0); Calcium 8.7 mg/dL (8.5-10.1); Carbon Dioxide 24.5 mmol/L (21.0-32.0); Chloride 105 mmol/L (98-107); Estimated GFR (African America >60 (>=60 mL/min/1.73m^2); Estimated GFR (Non-African Ame >60 (>=60 mL/min/1.73m^2); Globulin 4.5 g/dL; Glucose 79 mg/dL (74-106); Potassium 3.9 mmol/L (3.5-5.1); Sodium 136 mmol/L (136-145); Total Protein 6.9 g/dL (6.4-8.2); Uric Acid 2.9 mg/dL (2.6-6.0)
[2025-01-27] MEDS: PREDNISONE 10 MG TABLET PO (22:04)
[2025-01-27] MEDS: CETIRIZINE HCL 10 MG TABLET PO (22:04)
== END 2025-01-27 22:56 | disposition home or self-care (01) ==
PROVIDERS: Admitting Provider Midwife; Visit Provider Midwife
DX: O99.891 Other specified diseases and conditions complicating pregnancy (principal); R21 Rash and other nonspecific skin eruption; R10.9 Unspecified abdominal pain; Z3A.36 36 weeks gestation of pregnancy; M79.89 Other specified soft tissue disorders
CPT/HCPCS: 36415; 80053; 80076; 81001; 82239; 84550; 85025; 87086; G0378; G0379; J7512

== ENCOUNTER 2025-01-29 11:02 | Observation (INO) | payer OTHER, SELFPAY ==
[2025-01-29 11:30] VITALS: BP 110/65; PULSE 90
[2025-01-29 11:50] LABS: Glucose Urine UA NEGATIVE (NEGATIVE)
[2025-01-29 12:07] LABS: Cast Seen? NONE SEEN #/LPF (NONE SEEN); Crystals Seen? None Seen #/HPF (None Seen); Urine Culture Indicated YES-LC
[2025-01-29] MEDS: HYDROCORTISONE 1% CREAM 28 GRAM TUBE 1 APPLIC TOPICAL (12:45)
--- NOTE | 2025-01-29 14:19 | PC.NURSE ---
up to void, states ctxs slowing down and cream feels good for itch
== END 2025-01-29 16:15 | disposition home or self-care (01) ==
LOC: FBC 11:05
PROVIDERS: Admitting Provider Midwife; Visit Provider Midwife
DX: O99.891 Other specified diseases and conditions complicating pregnancy (principal); R10.9 Unspecified abdominal pain; Z3A.36 36 weeks gestation of pregnancy
CPT/HCPCS: 81001; 84112; 87086; G0378; G0379

== ENCOUNTER 2025-02-09 21:05 | Inpatient (IN) | payer OTHER, SELFPAY ==
--- OUTSIDE RECORDS SUMMARY | 2022-11-08 09:51 | XMS_ITS | Continuity of Care Document ---
Author Organization [facility] Address [address] [place] [address] Phone Support Name Relationship Address Phone Jerel Anderson [address] [place] [address] Unavailable Alonso Alaina Coon child [address] [place] [address] [phone] Lalo Hernandez DO Caregiver Unknown Unavailabl e Care Team Providers Care Crop Puller Name Role Phone Kumar Mohr Unavailable Unavailable Procedures Procedure Date Imm Admin Through 17 Yrs Of Age 023 HPV 9 Valent Imm Admin Through 17 Yrs Of Age 023 Meningococcal Conjugate Vaccine 023 Imm Admin Through 17 Yrs Of Age 023 MENB RP W/OMV VACCINE IM Imm Admin Through 17 Yrs Of Age 018 HPV 9 Valent Imm Admin Through 17 Yrs Of Age 018 Meningococcal Conjugate Vaccine 018 Imm Admin Through 17 Yrs Of Age 018 TDAP VACCINE >7 IM UDS Exempt OFFICE/OUTPATIENT VISIT, EST HEP A VACC, PED/ADOL, 2 DOSE DTAP-IPV VACC 4-6 YR IM MMR VACCINE, SC CHICKEN POX VACCINE, SC Advance Directives Directive Yes / No Effective Date File Name No Information Encounters Encounter Description Practice Location Reason(s) For Visit Diagnoses Date Provider Providers Copied on Encounter [facility], [address], [place], [id number], [place] tel:[phone] [facility] No Information Lydia Cowart. [address], [place], [id number], [place]. tel:[phone] [facility], [address], [place], [id number], [place] tel:[phone] [facility] No Information Lydia Cowart. [address], [place], [id number], [place]. tel:[phone] [facility], [address], [place], [id number], [place] tel:[phone] [facility] No Information Lydia Cowart. [address], [place], [id number], [place]. tel:[phone] OFFICE/OUTPATI ENT VISIT, EST [facility], [address], [place], [id number], [place] tel:[phone] [facility] No Information Lydia Cowart. [address], [place], [id number], [place]. tel:[phone] Family History Family Member Type Diagnosis Age At Onset No Information Immunizations Vaccine Date Status Comments HPV (9-valent) administered Source: New I mmunization Record Meningococcal MCV4O administered Source: New Immunization Record meningococcal B, OMV, 2 dose schedule administered Source: New Immuniza tion Record HPV (9-valent) administered Source: New I mmunization Record MCV4 administered Source: New Imm unization Record Tdap administered Source: New Imm unization Record Kinrix administered Source: New Imm unization Record Hep A (ped/adol, 2 dose) administered [place] rce: New Immunization Record Varicella administered Source: New Imm unization Record MMR administered Source: New Imm unization Record Payers Payer name Insurance type Covered republican ID Authoriza tion(s) [place] CFC [id number] Medicaid Wrap - [facility] [id number] [place] [id number] Medicaid Wrap - [facility] [id number] [place] [employer] Medicaid MC [id number] Medicaid ap - [facility] [id number] Social History Type Description Quantity Date Captured Comments Sex Female Smoking Status No Information Sexual Orientation Straight or heterosexual Apr Gender Identity Female Chief Complaint And Reason For Visit No Information Reason For Referral Reason For Referral No Information Plan Of Treatment Date Type Action Status Goal RLP. Due on due Goal Tdap due Goal Depression screening. Due on due Goal PRAPARE ASSESSMENT. Due on A due Goal Influenza vaccine. Due on Au due Goal Tdap Vaccine. Due on 2027 due Goal Hep A. Due on du e Goal RLP. Due on due Goal Tdap due Goal Depression screening. Due on due Goal PRAPARE ASSESSMENT. Due on due Goal Influenza vaccine. Due on due Goal Tdap Vaccine. Due on 2027 due History Of Present Illness Encounter Date Complaint History Of Prese nt Illness No Information Functional Status Date Functional Assessmen t No Information Instructions Date Instruction Additional Infor mation No Information Assessments Type Assessment Date No Information Patient Care Teams Name Effective Dates (start - stop) Status Members No Information
--- OUTSIDE RECORDS SUMMARY | 2025-01-31 16:00 | XMS_ITS | Encounter Summary ---
Author Organization [facility] Address [address] [place] [address] Care Team Providers Care Medical Apparatus Model Maker Name Role Phone DavidLashawn perez Primary Care Provider [phone] Reason for Referral * Consultation (Routine) - ClosedSpecialtyDiagnoses / ProceduresReferred By ContactReferred To ContactDermatology Diagnoses Rash Procedures CO OFFICE/OUTPATIENT [facility] 60 MINUTES Laurie Stapleton CNM [address] [place] [address] Phone: tel: fax: Kaylee Barrientos, PROPERTY AND SUPPLY OFFICER-[employer]OTTON TIPPER [address] [address] Phone: tel: fax: Referral IDStatusReasonStart DateExpiration DateVisits RequestedVisits [id number] Required Encounter Details DateTypeDepartmentCare Team (Latest Contact Info)Spdgqnotkrw99/17/2025 4:00 PM [facility]ine [facility] [address] [place] [phone] Laurie Stapleton CNM [address] [place] [address] Rash (Primary Dx); [facility] streptococcus B [facility] Social History Tobacco UseTypesPacks/DayYears UsedDateSmoking Tobacco: NeverSmokeless Tobacco: NeverAlcohol UseStandard Drinks/WeekCommentsNever0 (1 standard drink = 0.6 oz pure alcohol)AUDIT-CAnswerDate RecordedQ1: How often do you have a drink containing alcohol?Never01/20/2023Q2: How many drinks containing alcohol do you have on a typical day when you are drinking?Patient does not drink01/20/2023Q3: How often do you have six or more drinks on one occasion?Never01/20/2023HQ-2 AnswerDate RecordedPatient Health Questionnaire-2 Likcg804/30/2023 Estimated Date of YxqeskkiTlcvbfczXvz62/11/2025Based on last menstrual period of 05/20/2024 (Exact Date)Sex and Gender InformationValueDate RecordedSex Assigned at BirthNot on fileLegal IwjLjlows01/15/2023 8:22 PM EDTGender IdentityNot on file Sexual OrientationNot on filedocumented as of this encounter Last Filed Vital Signs Vital SignReadingTime TakenCommentsBlood Qgoahukm141/80104/02/2024 3:59 PM EST Pulse--Temperature--Respiratory Rate--Oxygen Saturation--Inhaled Oxygen Concentration--Rvanja76.5 kg (193 lb)01/31/2025 3:59 PM ESTHeight--Body Mass Index--documented in this encounter Progress Notes * Laurie Stapleton CNM - 01/31/2025 4:00 PM EST Subjective No chief complaint on file. Dot Gupta is a 19 y.o. at 36w4d with a working estimated date of delivery of 02/24/2025, by Last Menstrual Period who presents for a routine visit. She denies vaginal bleeding, leakage of fluid, decreased movements, or contractions. OB History Para Term AB Living 1 0 0 0 0 0 SAB IAB Ectopic Multiple Live Births 0 0 0 0 0 # Outcome Date GA Lbr Jesse/2nd Weight Sex Type Anes PTL Lv 1 Current Her is complicated by: Asthma, rash on abdomen and legs Objective Physical Exam Weight: 193 lb Expected Total Weight Gain: 25 lb-35 lb Pregravid BMI: 24.30 BP: 118/80 Urine protein-negative Urine glucose-negative Assessment/Plan Diagnoses and all orders for this visit: Rash - Ambulatory referral to Dermatology; Future screening for streptococcus B ([facility]) - STREPTOCCOUS, GROUP B CULTURE; Future Rash appears on abdomen and coincides with her stretch hdz Continue vitamin. Labs reviewed. GBS taken. Expected mode of delivery Follow up in 1 week for a routine visit. Referral to dermatology to get opinion on rash. Patient has been to the ER 3x for it, she does not get treatment for it. I have sent RX for prednisone, she did not use oatmeal baths as she only has ashower, she is using hydrocortisone cream with a little relief. I think it is hormone, related. documented in this encounter Plan of Treatment DateTypeDepartmentCare Team (Latest Contact Info)Wsumdhbpcxm19/03/2025 4:15 PM ESTRoutine [facility] [address] [place] [address] Laurie Stapleton CNM [address] [place] [address] NameTypePriorityAssociated DiagnosesOrder ScheduleAmbulatory referral to DermatologyOutpatient ReferralRoutine Rash Expected: 01/31/2025 (Approximate), Expires: 07/31/2025documented as of this encounter Procedures Procedure NamePriorityDate/TimeAssociated DiagnosisCommentsSTREPTOCCOUS, GROUP B CZPLANJOowyeox86/18/2025 8:25 AM EST screening for streptococcus B ([facility] documented in this encounter Results * (ABNORMAL) STREPTOCCOUS, GROUP B CULTURE (02/01/2025 8:25 AM EST)Component ValueRef RangeTest MethodAnalysis TimePerformed AtPathologist SignatureMICRO [id number] QUALITYAdequateQUESTSOURCEVAGINAL/ANORECTALQUEST STATUSFINALQUESTISOLATE 1SEE NOTE(A)QUESTComment: Group B Streptococcus isolated Beta-hemolytic streptococci are predictably susceptible to Penicillin and other beta-lactams. Susceptibility testing not routinely performed. Please contact the laboratory within 3 days if susceptibility testing is desired. COMMENTSEE NOTEQUESTComment: Note per CDC guidelines optimal recovery is achieved by swabbing both the lower vagina and rectum (through the anal sphincter). Specimen (Source)Anatomical Location / LateralityCollection Method / Volume Collection TimeReceived Time02/01/2025 8:25 AM EST02/01/2025 8:26 AM EST Narrative Resulting Agency Comment Performing Organization Information ?Site ID: [id number] ?Name: [facility] ?Address: [address] [place] [address], [address] [place] [id number] ?Director: Sourav Philippe MD Authorizing ProviderResult TypeResult StatusValenew Stapleton CNMLAB BODY FLUIDS AND STOOLS ORDERABLESFinal ResultPerforming OrganizationAddressCity/State/ZIP CodePhone Number [facility] documented in this encounter Visit Diagnoses Diagnosis Rash- Primary Rash and other nonspecific skin eruption screening for streptococcus B ([facility]) screening for Streptococcus B documented in this encounter Care Teams Team MemberRelationshipSpecialtyStart DateEnd Date Lashawn Simmons DO [address] [facility] [place] [address] PCP - GeneralFamily Medicine11/10/24documented as of this encounter
--- OUTSIDE RECORDS SUMMARY | 2025-02-09 21:10 | XMS_ITS | Encounter Summary ---
Author Organization [facility] Address [address] [place] [address] Care Team Providers Care Hearing Aid Repair Technician Name Role Phone Lashawn Simmons DO Primary Care Provider [phone] Encounter Details DateTypeDepartmentCare Team (Latest Contact Info)Ckpxiewqont67/14/2025Orders Only [facility] [place] [facility] [address] [place] [address] Laurie Stapleton, ALEXANDRIAM [address] [place], [place] [phone] Hives Social History Tobacco UseTypesPacks/DayYears UsedDateSmoking Tobacco: NeverSmokeless Tobacco: NeverAlcohol UseStandard Drinks/WeekCommentsNever0 (1 standard drink = 0.6 oz pure alcohol)AUDIT-CAnswerDate RecordedQ1: How often do you have a drink containing alcohol?Never01/20/2023Q2: How many drinks containing alcohol do you have on a typical day when you are drinking?Patient does not drink01/20/2023Q3: How often do you have six or more drinks on one occasion?Never3PHQ-2 AnswerDate RecordedPatient Health Questionnaire-2 Rtlpn597/30/2023 Estimated Date of WjncauvwRqfccyxwXtt40/11/2025Based on last menstrual period of 05/20/2024 (Exact Date)Sex and Gender InformationValueDate RecordedSex Assigned at BirthNot on fileLegal NooHckhml90/15/2023 8:22 PM EDTGender IdentityNot on file Sexual OrientationNot on filedocumented as of this encounter Progress Notes * Priyanka Turner MA - 01/28/2025 10:01 AM EST Pt went to [facility] yesterday for hives. I tried to get pt in for appt yesterday with Michelle but pt stated she did not have a ride. Per michelle I sent in prednisone. Michelle wants to see pt in the office on Friday. Pt does not know if she can get a ride on Friday but she is going to call her mom to see and will call me back. documented in this encounter Plan of Treatment DateTypeDepartmentCare Team (Latest Contact Info)Pesigquybxh70/03/2025 4:15 PM ESTRoutine [facility] [place] [facility] [address] [place] [phone] Laurie Stapleton, CN [address] [place], [place] [phone] documented as of this encounter Visit Diagnoses Diagnosis Hives Unspecified urticaria documented in this encounter Care Teams Team MemberRelationshipSpecialtyStart DateEnd Date Lashawn Smimons DO [address] [facility] [place] [address] PCP - GeneralFamily Medicine11/10/24documented as of this encounter
--- OUTSIDE RECORDS SUMMARY | 2025-02-09 21:10 | XMS_ITS | Encounter Summary ---
Author Organization [facility] Address [address] [place] [address] Care Team Providers Care Information Technology Security Analyst Name Role Phone Lashawn Simmons DO Primary Care Provider [phone] Encounter Details DateTypeDepartmentCare Team (Latest Contact Info)Gghhdhgnecl55/15/2025linisync Result Encounter [facility] Unsolicited Laurie Stapleton, CNM [address] [place] [address] Social History Tobacco UseTypesPacks/DayYears UsedDateSmoking Tobacco: NeverSmokeless [...] on one occasion?Never3PHQ-2 AnswerDate RecordedPatient Health Questionnaire-2 Bpnja956/30/2023 Estimated Date of EoumznzmYyhcgaroFiz16/11/2025Based on last menstrual period of 05/20/2024 (Exact Date)Sex and Gender InformationValueDate RecordedSex Assigned at BirthNot on fileLegal ItvIqahch85/15/2023 8:22 PM EDTGender IdentityNot on file Sexual OrientationNot on filedocumented as of this encounter Plan of Treatment DateTypeDepartmentCare Team (Latest Contact Info)Mrchgywcaba81/03/2025 4:15 PM ESTRoutine [facility] [address] [place] [address] Laurie Stapleton, MIKEY [address] [place] [address] documented as of this encounter Procedures Procedure NamePriorityDate/TimeAssociated DiagnosisCommentsURINE CULTURE, MLJPZWJAnjpfjb80/15/2025 11:20 AM EST XXIBEHREKbbmguo60/15/2025 11:20 AM EST [facility] UA (CLEAN/CATCH) PRESENTATION MANAGER/MICRO IF IND.Ogjprwl5201/29/2025 11:20 AM EST documented in this encounter Results * URINE CULTURE, ROUTINE (01/29/2025 11:20 AM EST)ComponentValueRef RangeTest MethodAnalysis TimePerformed AtPathologist SignatureURINE CULTURE, ROUTINE ??Urine Culture, Routine TBHURINE CULTURE, ROUTINEMixed urogenital floraTBHURINE CULTURE, ROUTINELess than 10,000 colonies/mLTBHURINE CULTURE, ROUTINEPerformed at: [facility] LabBeaumont HospitalTBHURINE CULTURE, [id number] [place], [place] [id number] CULTURE, ROUTINELab Director: Nate Kay PhD, Phone: [phone] Specimen (Source)Anatomical Location / LateralityCollection Method / Volume Collection TimeReceived Time01/29/2025 11:20 AM EST01/29/2025 11:43 AM EST Narrative [facility] - 01/31/2025 1:09 AM EST Authorizing ProviderResult TypeResult StatusValenew Stapleton CNMLAB BLOOD ORDERABLESFinal ResultPerforming OrganizationAddressCity/State/ZIP CodePhone Number [facility] * (ABNORMAL) [facility] UA (CLEAN/CATCH) PRESENTATION MANAGER/MICRO IF IND. (01/29/2025 11:20 AM EST) ComponentValueRef RangeTest MethodAnalysis TimePerformed AtPathologist SignatureCOLOR URINELT. YELLOWYELLOWTBHCLARITY URINECLEARCLEARTBHSPECIFIC GRAVITY URINE<=1.005(A)1.005 - 1.025TBHPH URINE7.05.0 - 9.0TBHPROTEIN URINE NEGATIVENEG/TRACE mg/dLTBHGLUCOSE URINE UANEGATIVENEGATIVE mg/dLTBHBILIRUBIN URINENEGATIVENEGATIVETBHKETONES URINENEGATIVENEGATIVE mg/dLTBHBLOOD URINE NEGATIVENEGATIVETBHNITRITE URINENEGATIVENEGATIVETBHUROBILINOGEN URINE1.00.2 - 1.0 EU/dLTBHLEUKOCYTE ESTERASE URINESMALL(A)NEGATIVETBHURINE MICROSCOPIC INDICATEDYESTBHSpecimen (Source)Anatomical Location / LateralityCollection Method / VolumeCollection TimeReceived Time01/29/2025 11:20 AM EST01/29/2025 11:43 AM EST Narrative [facility] - 01/29/2025 12:06 PM EST Authorizing ProviderResult TypeResult StatusValerie L Daya CNLINISYNCFinal ResultPerforming OrganizationAddressCity/State/ZIP CodePhone Number [facility] * AMNISURE (01/29/2025 11:20 AM EST)ComponentValueRef RangeTest MethodAnalysis TimePerformed AtPathologist SignatureTBH AMNISURENEGATIVENEGATIVETBHSpecimen (Source)Anatomical Location / LateralityCollection Method / VolumeCollection TimeReceived Time01/29/2025 11:20 AM EST01/29/2025 11:43 AM EST Narrative [facility] - 01/29/2025 11:56 AM EST Authorizing ProviderResult TypeResult StatusValerie L Leenao CNMLAB BLOOD ORDERABLESFinal ResultPerforming OrganizationAddressCity/State/ZIP CodePhone Number [facility] documented in this encounter Visit Diagnoses Not on filedocumented in this encounter Care Teams Team MemberRelationshipSpecialtyStart DateEnd Date Lashawn Simmons DO [address] [facility] [place] [address] PCP - GeneralFamily Medicine11/10/24documented as of this encounter
--- OUTSIDE RECORDS SUMMARY | 2025-02-09 21:10 | XMS_ITS | Clinical Summary ---
Author Organization [facility] Address [address] [place] [address] Care Team Providers Care Manufacturing Plant Controller Name Role Phone Lashawn Simmons Primary Care Provider [phone] Allergies Active AllergyReactionsCriticalityNoted DateCommentsCephalosporinsHives 12/21/2023 Medications MedicationSigDispense QuantityRefillsLast FilledStart DateEnd DateStatus albuterol HFA 90 mcg/act inhaler Inhale 2 puffs every 4 (four) hours if needed for wheezing.Active multivitamin () 27-0.8 MG tablet Indications: examination or test, positive result ([facility])Take 1 tablet by mouth Daily 30 tablet 5Active albuterol HFA (Ventolin HFA) 90 mcg/act inhaler Indications:History of asthmaInhale 2 puffs every 4 (four) hours if needed for wheezing 18 g 1108/825575/6Active ferrous sulfate (Fe Tabs) 325 (65 Fe) MG EC tablet Indications:Anemia during in third trimester ([facility])Take 1 tablet (325 mg) by mouth in the morning and 1 tablet (325 mg) before bedtime. Do not crush, chew, or split. 60 tablet 111/153742/6Active docusate sodium (Colace) 100 MG capsule Indications:Anemia during in third trimester ([facility])Take 1 capsule (100 mg) by mouth in the morning and 1 capsule (100 mg) before bedtime. 60 capsule 310//224608/6Active predniSONE (Deltasone) 10 MG tablet Indications:HivesTake 1 tablet (10 mg) by mouth in the morning and 1 tablet (10 mg) before bedtime. Do all this for 5 days. 10 tablet 5104/04/2024Expired Encounters DateTypeDepartmentCare TwytDbgchojeimv46/26/2025Orders Only [facility] Garret CALLAHAN[address] [phone] Laurie Stapleton CNM Anemia during in third trimester ([facility])01/31/2025 4:00 PM EST Routine [address] [phone] Laurie Stapleton CNM Rash (Primary Dx); screening for streptococcus B ([facility])5Clinisync Result Encounter [facility] Unsolicited Laurie Stapleton CNM 01/28/2025Orders Only [address] [phone] Laurie Stapleton CNM Hives5Clinisync Result Encounter [facility] External Department Unsolicited Laurie Stapleton CNM 01/12/2025 4:30 PM EDTRoutine [facility] [place] [phone] Laurie Stapleton CNM Encounter for care of first , third trimester ([facility]) (Primary Dx); History of gdhusc085Bamboo flowsheet [facility] [place] [phone] Laurie Stapleton CNM 01/06/2025External Result Encounter [facility] External Department Unsolicited Kumar Freeman DO 01/06/2025External Result Encounter [facility] External [facility] Unsolicited Kumar Freeman, 12/16/2024 6:30 PM EDTAncillary Procedure [facility] [address] [place] [address] related condition in third trimester ([facility])12/16/2024Travel 12/16/2024Orders Only [facility] [address] [place] [phone] Laurie Stapleton CNM Anemia during in third trimester ([facility])12/16/2024Results Follow-Up [facility] [address] [place] [phone] Priyanka Turner MA CBC, GLUCOSE, GESTATIONAL SCREEN (50G)-135 SWGUXB9712/14/20241990Gvtejf83/29/2025 External Result Encounter [facility] External Department Unsolicited Nora Smith, DO 12/13/2024External Result Encounter [facility] Unsolicited Nora Smith, DO 12/13/2024External Result Encounter [facility] External Department Unsolicited Nora Smith, DO 12/09/2024 2:30 PM EDTRoutine [facility] [address] [place] [phone] Laurie Stapleton CNM Encounter for care of first , third trimester ([facility]) (Primary Dx); related condition in third trimester ([facility]); Screening for diabetes mellitus; Screening for iron deficiency wcphgs1612/09/2024amboo flowsheet [facility] [place] [address] Laurie Stapleton CNM 11/10/2024 3:00 PM EDTRoutine [facility] [address] [place] [phone] Laurie Stapleton CNM History of asthma (Primary Dx); Encounter for care of first , second trimester ([facility]) 5Bamboo flowsheet [facility] [address] [place] [phone] Laurie Stapleton CNM from Last 3 [...] have six or more drinks on one occasion?Never01/20/2023HQ-2AnswerDate RecordedPatient Health Questionnaire-2 Irfit05004/15/2022Estimated Date of ZkdvxbraHiividesXew97/11/2025Based on last menstrual period of 05/20/2024 (Exact Date)Sex and Gender InformationValueDate RecordedSex Assigned at BirthNot on fileLegal EbpOdllkd13/15/2023 8:22 PM EDTGender IdentityNot on fileSexual OrientationNot on file Last Filed Vital Signs Vital SignReadingTime TakenCommentsBlood Ryexgdts768/80104/02/2024 3:59 PM EST Ewaps515507/07/2024 6:18 PM DTZIifedorjcnj59.5 ??C (97.7 ??F)07/07/2024 6:18 PM EDTRespiratory Rate--Oxygen Fmkdkbrfpp49%07/07/2024 6:18 PM EDTInhaled Oxygen Concentration--Wawdqx67.5 kg (193 lb)01/31/2025 3:59 PM SHWSzjzyn683.1 cm (5' 5 )11/29/2020 12:00 PM EDTBody Mass Index-- Plan of Treatment DateTypeDepartmentCare Team (Latest Contact Info)Dpanwfzdclj40/03/2025 4:15 PM ESTRoutine [facility] [address] [place] [phone] Laurie Stapleton CNM [address] [place] [address] Procedures Procedure NamePriorityDate/TimeAssociated DiagnosisCommentsSTREPTOCCOUS, GROUP B QRGIKSHVvofjgq01/18/2025 8:25 AM EST screening for streptococcus B ([facility]) URINE CULTURE, RDMAYAYMzlckam75/15/2025 11:20 AM EST TBH UA (CLEAN/CATCH) AIRCREWMAN/MICRO IF IND.Upnrfga2201/29/2025 11:20 AM EST PXKRUAXXSukerbq28/15/2025 11:20 AM EST C[facility] BILE ACIDS FRACT AEZCvolzts34/13/2025 9:39 PM EST ALL URIC XKVIQuhtnby96/13/2025 9:39 PM EST HMHP LIVER UAMBKEgycmxm97/13/2025 9:39 PM EST [facility] CMP (CMP) (FOR REMOTE [facility] USE)Dryrduh9901/27/2025 9:39 PM EST ALL CBC WITH AUTO EYZSTaiqirx59/13/2025 9:39 PM EST URINE CULTURE, QDQXSRXTjtewjm94/13/2025 8:30 PM EST TBH URINE MICROSCOPIC OJKMKubdqjc28/13/2025 8:30 PM EST TBH UA (CLEAN/CATCH) AIRCREWMAN/MICRO IF IND.Avvgsqp0201/27/2025 8:30 PM EST OB URINE DRUG SCREEN (NO THC)STAT1 10:50 PM EDT URINALYSIS XNNUYBUSZK67/23/2025 10:50 PM EDT US OB FOLLOW UP TRANSABDOMINAL FPOIPGFZDlzckza40/02/2025 6:52 PM EDT related condition in third trimester ([facility]) GQMVHVSPRICQPYO81/29/2025 8:06 PM EDT AMNISURE(PAMG-1)STAT12/13/2024 8:06 PM EDT URINALYSIS OWHNXRSMUK36/29/2025 7:55 PM EDT URINALYSIS, MANUAL FSFROKVY59/29/2025 7:55 PM EDT GLUCOSE, GESTATIONAL SCREEN (50G)-135 INXKAHQbsesgv00/25/2025 2:50 PM EDT Screening for diabetes mellitus RHNXtpcirh89/25/2025 2:50 PM EDT Screening for iron deficiency anemia from Last 3 Months Results * (ABNORMAL) STREPTOCCOUS, GROUP B CULTURE (02/01/2025 8:25 AM EST)Component ValueRef RangeTest MethodAnalysis TimePerformed AtPathologist SignatureMICRO GEJHYU53685432FTFRJAEZOUDVG QUALITYAdequateQUESTSOURCEVAGINAL/ANORECTALQUEST STATUSFINALQUESTISOLATE 1SEE NOTE(A)QUESTComment: Group B Streptococcus [...] Performing Organization Information ?Site ID: QPT ?Name: [employer] [facility] ?Address: [address] [place] [address], [address] [place] [phone] ?Director: Sourav Philippe MD Authorizing ProviderResult TypeResult StatusValerisamir Stapleton CNMLAB BODY FLUIDS AND STOOLS ORDERABLESFinal ResultPerforming OrganizationAddressCity/State/ZIP CodePhone Number [facility] * URINE CULTURE, ROUTINE (01/29/2025 11:20 AM EST) Only the most recent of2 resultswithin the time period is included. ComponentValueRef RangeTest MethodAnalysis TimePerformed AtPathologist Signature URINE CULTURE, ROUTINE ??Urine Culture, Routine TBHURINE CULTURE, ROUTINEMixed urogenital floraTBHURINE CULTURE, ROUTINELess than 10,000 colonies/mLTBHURINE CULTURE, ROUTINEPerformed at: [facility] Francis HospitalTBHURINE CULTURE, [id number] [place], [place] [id number] CULTURE, ROUTINELab Director: Nate Kay PhD, Phone: [phone] Specimen (Source)Anatomical Location / LateralityCollection Method / Volume Collection TimeReceived Time01/29/2025 11:20 AM EST01/29/2025 11:43 AM EST Narrative [facility] - 01/31/2025 1:09 AM EST Authorizing ProviderResult TypeResult StatusValerie L Floro CNMLAB BLOOD ORDERABLESFinal ResultPerforming OrganizationAddressCity/State/ZIP CodePhone Number [facility] * AMNISURE (01/29/2025 11:20 AM EST)ComponentValueRef RangeTest MethodAnalysis TimePerformed AtPathologist SignatureTBH AMNISURENEGATIVENEGATIVETBHSpecimen (Source)Anatomical Location / LateralityCollection Method / VolumeCollection TimeReceived Time01/29/2025 11:20 AM EST01/29/2025 11:43 AM EST Narrative [facility] - 01/29/2025 11:56 AM EST Authorizing ProviderResult TypeResult StatusValerie L Floro CNMLAB BLOOD ORDERABLESFinal ResultPerforming OrganizationAddressCity/State/ZIP CodePhone Number [facility] * (ABNORMAL) TBH UA (CLEAN/CATCH) AIRCREWMAN/MICRO IF IND. (01/29/2025 11:20 AM EST) Only the most recent of2 resultswithin the time period is included. ComponentValueRef RangeTest MethodAnalysis TimePerformed AtPathologist Signature COLOR URINELT. YELLOWYELLOWTBHCLARITY URINECLEARCLEARTBHSPECIFIC GRAVITY URINE <=1.005(A)1.005 - 1.025TBHPH URINE7.05.0 - 9.0TBHPROTEIN URINENEGATIVENEG/TRACE mg/dLTBHGLUCOSE URINE UANEGATIVENEGATIVE mg/dLTBHBILIRUBIN URINENEGATIVENEGATIVE TBHKETONES URINENEGATIVENEGATIVE mg/dLTBHBLOOD URINENEGATIVENEGATIVETBHNITRITE URINENEGATIVENEGATIVETBHUROBILINOGEN URINE1.00.2 - 1.0 EU/dLTBHLEUKOCYTE ESTERASE URINESMALL(A)NEGATIVETBHURINE MICROSCOPIC INDICATEDYESTBHSpecimen (Source)Anatomical Location / LateralityCollection Method / VolumeCollection TimeReceived Time01/29/2025 11:20 AM EST01/29/2025 11:43 AM EST Narrative [facility] - 01/29/2025 12:06 PM EST Authorizing ProviderResult TypeResult StatusKessler Institute for RehabilitationLINISYNCFinal ResultPerforming OrganizationAddressCity/State/ZIP CodePhone Number [facility] * HMHP LIVER PANEL (01/27/2025 9:39 PM EST)ComponentValueRef RangeTest Method Analysis TimePerformed AtPathologist SignatureBILIRUBIN DIRECT0.20.0 - 0.2 mg/dLTBHSpecimen (Source)Anatomical Location / LateralityCollection Method / VolumeCollection TimeReceived Time01/27/2025 9:39 PM EST01/27/2025 9:45 PM EST Narrative [facility] - 01/27/2025 10:01 PM EST Authorizing ProviderResult TypeResult StatusKessler Institute for RehabilitationLINISYNCFinal ResultPerforming OrganizationAddressty/State/ZIP CodePhone Number [facility] TB * (ABNORMAL) CCF CMP (CMP) (FOR REMOTE [facility] USE) (01/27/2025 9:39 PM EST) ComponentValueRef RangeTest MethodAnalysis TimePerformed AtPathologist PlkgsepchOOWUAT507791 - 145 mmol/LTBHPOTASSIUM3.93.5 - 5.1 mmol/LTBHCHLORIDE 86198 - 107 mmol/LTBHCARBON PRGDMQV15.521.0 - 32.0 mmol/LTBHANION GAP10.4TBH QFQRUGE7986 - 106 mg/dLTBHBLOOD UREA NITROGEN7.07.0 - 18.0 mg/dLTBHCREATININE 0.42(L)0.55 - 1.02 mg/dLTBHTBH EGFR-AF NIGERIEN>60>=60 mL/min/1.73m 2TBHTBH EGFR-NON AF NIGERIEN>60>=60 mL/min/1.73m 2TBHBUN CREATININE RATIO16.7TBH CALCIUM8.78.5 - 10.1 mg/dLTBHBILIRUBIN TOTAL0.50.2 - 1.0 mg/dLTBHASPARTATE AMINO JTMNVRYTZTW2506 - 37 U/LTBHALANINE NCYFMMVFLMJDWJZK0744 - 59 U/LTBH ALKALINE CQZFUGPXIYS876(H)46 - 116 U/LTBHTOTAL PROTEIN6.96.4 - 8.2 g/dLTBH ALBUMIN LEVEL2.4(L)3.4 - 5.0 g/dLTBHGLOBULIN4.5g/dLTBHALBUMIN GLOBULIN RATIO 0.5TBHSpecimen (Source)Anatomical Location / LateralityCollection Method / VolumeCollection TimeReceived Time01/27/2025 9:39 PM EST01/27/2025 9:45 PM EST Narrative [facility] - 01/27/2025 10:01 PM EST Authorizing ProviderResult TypeResult StatusLaurie Stapleton [facility]ITALLINISYNCFinal ResultPerforming OrganizationAddressCity/State/ZIP CodePhone Number [facility] * CCF BILE ACIDS FRACT BLD (01/27/2025 9:39 PM EST)ComponentValueRef RangeTest MethodAnalysis TimePerformed AtPathologist SignatureBILE ACIDS5.60.0 - 10.0 umol/LTBHComment: Performed at: ??BN - [facility] [address] ??[id number] Pedigree Researcher: Elena Rosado MD, Phone: ??[phone] Specimen (Source)Anatomical Location / LateralityCollection Method / Volume Collection TimeReceived Time01/27/2025 9:39 PM EST01/27/2025 9:45 PM EST Narrative [facility] - 01/30/2025 10:08 PM EST Authorizing ProviderResult TypeResult StatusLaurie Stapleton [facility] H[facility]PITALLINISYNCFinal ResultPerforming OrganizationAddressCity/State/ZIP CodePhone Number [facility] * ALL URIC ACID (01/27/2025 9:39 PM EST)ComponentValueRef RangeTest Method Analysis TimePerformed AtPathologist SignatureURIC ACID2.92.6 - 6.0 mg/dLTBH Specimen (Source)Anatomical Location / LateralityCollection Method / Volume Collection TimeReceived Time01/27/2025 9:39 PM EST01/27/2025 9:45 PM EST Narrative [facility] - 01/27/2025 10:01 PM EST Authorizing ProviderResult TypeResult StatusValerie Shaggy [facility] Jackson StreetLINISYNCFinal ResultPerforming OrganizationAddressCity/State/ZIP CodePhone Number [facility] * (ABNORMAL) ALL CBC WITH AUTO DIFF (01/27/2025 9:39 PM EST)ComponentValueRef RangeTest MethodAnalysis TimePerformed AtPathologist SignatureTBH WBC10.34.0 - 11.0 10 3/uLTBHTBH RBC3.34(L)4.20 - 5.40 10 6/uLTBHTBH HGB8.3(L)12.0 - 16.0 g/dLTBHTBH HCT26.3(L)36.0 - 48.0 %TBHTBH MCV78.7(L)81.0 - 99.0 fLTBHTBH MCH 24.9(L)26.7 - 34.0 pgTBHTBH MCHC31.629.9 - 35.2 g/dLTBHTBH RDW15.9(H)11.0 - 15.0 %TBHTBH HDL721108 - 450 10 3/uLTBHTBH MPV9.4(L)9.5 - 13.5 fLTBH NEUTROPHILS PERCENT AUTO70.243.0 - 75.0 %TBHLYMPHOCYTES PERCENT AUTO15.5(L) 20.5 - 60.0 %TBHMONOCYTES PERCENT AUTO10.41.7 - 12.0 %TBHTBH EO %1.80.9 - 7.0 %TBHBASOPHILS PERCENT AUTO0.50.2 - 2.0 %TBHIMMATURE GRANULOCYTES PCT AUTO1.6 (H)0.0 - 0.5 %TBHNEUTROPHILS ABSOLUTE AUTO7.2(H)1.4 - 6.5 10 3/uLTBH LYMPHOCYTES ABSOLUTE AUTO1.61.2 - 3.8 10 3/uLTBHMONOCYTES ABSOLUTE AUTO1.1(H) 0.3 - 0.8 10 3/uLTBHTBH EO #0.20.0 - 0.7 10 3/uLTBHBASOPHILS ABSOLUTE AUTO0.1 0.0 - 0.1 10 3/uLTBHIMMATURE GRANULOCYTES ABS AUTO0.16(H)0.00 - 0.03 10 3/uL TBHSpecimen (Source)Anatomical Location / LateralityCollection Method / Volume Collection TimeReceived Time01/27/2025 9:39 PM EST01/27/2025 9:45 PM EST Narrative [facility] - 01/27/2025 9:57 PM EST Authorizing ProviderResult TypeResult StatusValenew Stapleton [facility]PITALLINISYNCFinal ResultPerforming OrganizationAddressCity/State/ZIP CodePhone Number [facility] * (ABNORMAL) TB URINE MICROSCOPIC ONLY (01/27/2025 8:30 PM EST)ComponentValue Ref RangeTest MethodAnalysis TimePerformed AtPathologist SignatureTB SBZ85-95 (A)NONE SEEN #/HPFTBHTBH RBC0-20 - 2 #/HPFTBHBACTERIA URINEMODERATE(A)NONE SEEN #/HPFTBHMUCUS URINEMODERATE(A)NONE SEENTBHSQUAMOUS EPITHELIAL CELL URINE MANY(A)NONE/RARE #/LPFTBHCRYSTALS SEEN?None SeenNone Seen #/HPFTBHCAST SEEN? NONE SEENNONE SEEN #/LPFTBHURINE CULTURE INDICATEDYES-LCTBHComment: --- ??01/27/252127 --- Ur Culture Ind previously reported as: ??YES-[facility] Specimen (Source)Anatomical Location / LateralityCollection Method / Volume Collection TimeReceived Time01/27/2025 8:30 PM EST01/27/2025 8:41 PM EST Narrative [facility] - 01/27/2025 9:29 PM EST Authorizing ProviderResult TypeResult StatusValekysamir Stapleton [facility]ITALLINISYNCEdited Result - FinalPerforming OrganizationAddressCity/State/ZIP CodePhone Number [facility] * OB URINE DRUG SCREEN (NO THC) (01/06/2025 10:50 PM EDT)ComponentValueRef Range Test MethodAnalysis TimePerformed AtPathologist SignatureAMPHETAMINE SCREEN,WVBQTLzaskpjgWjihibgu94/23/2025 11:43 PM [facility] CtrBARBITURATE SCREEN,CHMGWIhfvuwazSxaanqrp57/23/2025 11:43 PM [facility] CtrBENZODIAZEPINES SCREEN,KXURVPjzjjbqaQfkmdhkr80/23/2025 11:43 PM [facility] CtrCOCAINE SCREEN,URINENegativeNegative 01/06/2025 11:43 PM [facility] CtrOPIATE SCREEN,URINE DqrmuhhpHkfosydw62/23/2025 11:43 PM [facility] PHENCYCLIDINE SCREEN, IBSOGLalqkswcEolulybi32/23/2025 11:43 PM [facility] CtrComment: These are unconfirmed results and should not be used for legal purposes. ??Drug Cut-Off Concentration: ? AMPH 1000 ng/mL ? LORAINE ??200 ng/mL ? MERCEDES ??200 ng/mL ? COCM ??300 ng/mL ? OP ?300 ng/mL ? PCP ?25 ng/mL Specimen (Source)Anatomical Location / LateralityCollection Method / Volume Collection TimeReceived KvirXtjhd71/23/2025 10:50 PM EDT1 10:56 PM EDT Narrative [facility] - 01/06/2025 11:43 PM EDT Comment s/s of acute impairment Authorizing ProviderResult TypeResult StatusRichard A Visci DOLAB BLOOD ORDERABLESFinal ResultPerforming OrganizationAddressCity/[facility]/ZIP CodePhone Number [facility] [address] [place] [address], [facility] [address] [place] [address] * (ABNORMAL) Urinalysis with reflex microscopic (01/06/2025 10:50 PM EDT) Only the most recent of2 resultswithin the time period is included. ComponentValueRef RangeTest MethodAnalysis TimePerformed AtPathologist Signature COLOR,AJKKDVjkpmkSkceja59/23/2025 11:16 PM [facility] APPEARANCE,URINECloudy(AA)Clear01/06/2025 11:16 PM [facility] CtrSPECIFICY GRAVITY,URINE1.0231.001 - 1.5820901/06/2025 11:16 PM [facility] CtrPH,URINE6.55.0 - 9.010 11:16 PM [facility] CtrLEUKOCYTE ESTERASE,URINE2+Ifisknkr53/23/2025 11:16 PM [facility] CtrNITRITE,WWPLQCtbhhgbiHziwdipu57/23/2025 11:16 PM [facility] CtrPROTEIN,SZQEK94Ffdqdknr mg/dL01/06/2025 11:16 PM [facility] CtrGLUCOSE,URINE (UA)NormalNormal mg/dL 01/06/2025 11:16 PM [facility] CtrKETONES,URINENegative Ehjqtokj58/23/2025 11:16 PM [facility] CtrUROBILINOGEN,URINE4 Normal mg/dL01/06/2025 11:16 PM [facility] CtrBILIRUBIN,URINE LntsbyikVenbjyxn65/23/2025 11:16 PM [facility] CtrOCCULT BLOOD,XPEIRAaejekduTwtlflzi10/23/2025 11:16 PM [facility] RBC,URINE1-20 - 4 [HPF]01/06/2025 11:29 PM [facility] WBC,URINE3-40 - 4 [HPF]01/06/2025 11:29 PM [facility] CtrWBC CLUMP, URINEFewNone Seen [LPF]01/06/2025 11:29 PM [facility] CtrSQUAMOUS EPITHELIAL CELL,URINE1-20 - 2 [HPF]01/06/2025 11:29 PM [facility] CtrOTHE CRYSTALS,URINERare[HPF]01/06/2025 11:29 PM [facility] CtrBACTERIA,URINENone SeenNone Seen [HPF]01/06/2025 11:29 PM [facility] CtrHYALINE CASTS,URINENone0 - 8 [LPF]01/06/2025 11:29 PM [facility] CtrMUCUS,URINERare[LPF]01/06/2025 11:29 PM [facility] CtrSpecimen (Source)Anatomical Location / LateralityCollection Method / VolumeCollection TimeReceived MursHqkar97/23/2025 10:50 PM EDT1 10:56 PM EDT Narrative [facility] - 01/06/2025 11:29 PM EDT Comment c/o urinary symptoms or increased blood pressure Name Collection Type:: Clean-Voided Midstream Authorizing ProviderResult TypeResult StatusRichard A Visci DOLAB URINE ORDERABLESFinal ResultPerforming OrganizationAddressCity/State/ZIP CodePhone Number [facility] [address] [place] [address], [facility] [address] [place] [address] * OB follow up transabdominal approach (12/16/2024 [...] BY: Gabriel Ngo MD Authorizing ProviderResult TypeResult StatusValerisamir Stapleton [facility] PROCEDURESFinal Result * AMNISURE(PAMG-1) (12/13/2024 8:06 PM EDT)ComponentValueRef RangeTest Method Analysis TimePerformed AtPathologist SignatureAMNISURENegativeNegative 12/13/2024 8:31 PM [facility] CtrSpecimen (Source) Anatomical Location / LateralityCollection Method / VolumeCollection Time Received TimeOtherTopography unknown / Sqbrgwi4712/13/2024 8:06 PM EDT12/13/2024 8:15 PM EDT [facility] - 12/13/2024 8:31 PM EDT Comment For suspected repture of membranes Authorizing ProviderResult TypeResult StatusKathleen E Rinkes DOLAB BLOOD ORDERABLESFinal ResultPerforming OrganizationAddressCity/State/ZIP CodePhone Number [facility] [address] [place] [address], [facility] [address] [place] [address] * fibronectin (12/13/2024 8:06 PM EDT)ComponentValueRef RangeTest Method Analysis TimePerformed AtPathologist SignatureFETAL FIBRONECTINNegative Mdslaspf63/29/2025 8:51 PM [facility] CtrSpecimen (Source) Anatomical Location / LateralityCollection Method / VolumeCollection Time Received TimeOtherTopography unknown / Shcbner9812/13/2024 8:06 PM EDT12/13/2024 8:15 PM EDT Narrative [facility] - 12/13/2024 8:51 PM EDT Comment patients 22 - 34 6/7 weeks prior to vaginal exam Authorizing ProviderResult TypeResult StatusKathleen E Rinkes DOLAB BODY FLUIDS AND STOOLS ORDERABLESFinal ResultPerforming OrganizationAddressCity/State/ZIP CodePhone Number [facility] [address] [place] [address], [facility] [address] [place] [address] * Urinalysis, manual only (12/13/2024 7:55 PM EDT)ComponentValueRef RangeTest MethodAnalysis TimePerformed AtPathologist SignatureCOLOR,URINEYellowYellow 12/13/2024 8:34 PM [facility] CtrAPPEARANCE,URINEClearClear 12/13/2024 8:34 PM [facility] CtrSPECIFICY GRAVITY,URINE 1.0221.001 - 1.6309512/13/2024 8:34 PM [facility] CtrPH,URINE 7.05.0 - 9.009 8:34 PM [facility] CtrLEUKOCYTE ESTERASE,URINE3+Olupnhpq26/29/2025 8:34 PM [facility] NITRITE,FYTLOBbmwppbmFyumuwph72/29/2025 8:34 PM [facility] CtrPROTEIN,AXMWU11Cxpkusyq mg/dL12/13/2024 8:34 PM [facility] CtrGLUCOSE,URINE (UA)NormalNormal mg/dL12/13/2024 8:34 PM [facility] CtrKETONES,UVAMKDpngjwyjWuepvgwe65/29/2025 8:[address] [facility] CtrUROBILINOGEN,QHZQQ3Lfvkyj mg/dL12/13/2024 8:34 PM [facility] CtrBILIRUBIN,CKSJEEfnfutbqOjavstal21/29/2025 8:34 PM [facility] CtrOCCULT BLOOD,URINENegativeNegative 12/13/2024 8:34 PM [facility] CtrSpecimen (Source) Anatomical Location / LateralityCollection Method / VolumeCollection Time Received GejfUqdef37/29/2025 7:55 PM EDT12/13/2024 8:29 PM EDT Narrative [facility] - 12/13/2024 8:34 PM EDT Comment c/o urinary symptoms or increased blood pressure Name Collection Type:: Voided Authorizing ProviderResult TypeResult StatusKatrubi Smith DOLAB URINE ORDERABLESFinal ResultPerforming OrganizationAddressCity/State/ZIP CodePhone Number [facility] [address] [place] [address], [facility] [address] [place] [address] * GLUCOSE, GESTATIONAL SCREEN (50G)-135 CUTOFF (12/09/2024 2:50 PM EDT)Component ValueRef RangeTest MethodAnalysis TimePerformed AtPathologist Signature GLUCOSE, GESTATIONAL SCREEN (50G)-135 NFJTTD344<135 mg/dLQUESTSpecimen (Source)Anatomical Location / LateralityCollection Method / VolumeCollection TimeReceived Time12/09/2024 2:50 PM EDT12/09/2024 2:51 PM EDT Narrative Resulting Agency Comment Performing Organization Information ?Site ID: QPT ?Name: [employer] [facility] ?Address: [address] [place] [address], [address] [place] [phone] ?Director: Sourav Philippe MD Authorizing ProviderResult TypeResult StatusLaurie Stapleton CNMLAB BLOOD ORDERABLESFinal ResultPerforming OrganizationAddressCity/State/ZIP CodePhone Number [facility]ST * (ABNORMAL) CBC (12/09/2024 2:50 PM EDT)ComponentValueRef RangeTest Method Analysis TimePerformed AtPathologist SignatureWHITE BLOOD CELL COUNT10.63.8 - 10.8 Thousand/uLQUESTRED BLOOD CELL COUNT3.08(L)3.80 - 5.10 Million/uLQUEST HEMOGLOBIN8.5(L)11.7 - 15.5 g/wXSWOCJUBAPTPTWVU42.2(L)35.0 - 45.0 %QUESTMCV 88.380.0 - 100.0 lJNXFWKZCT99.627.0 - 33.0 ekQMNXQULPP54.3(L)32.0 - 36.0 g/dL QUESTComment: For adults, a slight decrease in the calculated MCHC value (in the range of 30 to 32 g/dL) is most likely not clinically significant; however, it should be interpreted with caution in correlation with other red cell parameters and the patient's clinical condition. RDW13.311.0 - 15.0 %QUESTPLATELET [id number] - 400 Thousand/uLQUESTMPV9.07.5 - 12.5 fLQUESTSpecimen (Source)Anatomical Location / LateralityCollection Method / VolumeCollection TimeReceived TimeBloodVenous blood specimen / Unknown 12/09/2024 2:50 PM EDT12/09/2024 2:51 PM EDT Narrative Resulting Agency Comment Performing Organization Information ?Site ID: [id number] ?Name: [employer] [facility] ?Address: [address] [place] [phone] ?Director: Sourav Philippe MD Authorizing ProviderResult TypeResult StatusValerisamir Sterndiann CNMLAB BLOOD ORDERABLESFinal ResultPerforming OrganizationAddressCity/State/ZIP CodePhone Number [facility] from Last 3 Months Insurance Care Teams Team MemberRelationshipSpecialtyStart DateEnd Date Lashawn Simmons DO [address] [place] [address] PCP - GeneralFamily Medicine11/10/24
--- OUTSIDE RECORDS SUMMARY | 2025-02-09 21:10 | XMS_ITS | Encounter Summary ---
Author Organization [facility] Address [address] [place] [address] Care Team Providers Care Fabric Normalizer Name Role Phone DavidLashawn perez Primary Care Provider [phone] Reason for Referral * Consultation (Routine) - Pending ReviewSpecialtyDiagnoses / ProceduresReferred By ContactReferred To ContactHematology / Hematology and Oncology Diagnoses Anemia during in third trimester ([facility]) Procedures [place] OFFICE/OUTPATIENT [facility] 60 MINUTES Laurie Stapleton CNM [address] [place] [address] Phone: tel: fax: Alaina Johnson MD [address] [place] [address] Phone: tel: fax: Referral IDStatusReasonStart DateExpiration DateVisits RequestedVisits [id number] Review Specialty Services Required / Encounter Details DateTypeDepartmentCare Team (Latest Contact Info)Lubrvjuhokt14/26/2025Orders Only [facility] O[facility]YN [address] [place] [phone] Laurie Stapleton CNM [address] [place] [address] Anemia during in third trimester [facility] Social History Tobacco UseTypesPacks/DayYears UsedDateSmoking Tobacco: NeverSmokeless [...] on one occasion?Never3PHQ-2 AnswerDate RecordedPatient Health Questionnaire-2 Qtaft679/30/2023 Estimated Date of CssnxdxnTymzdlwwJst90/11/2025Based on last menstrual period of 05/20/2024 (Exact Date)Sex and Gender InformationValueDate RecordedSex Assigned at BirthNot on fileLegal ZqrHffgpf35/15/2023 8:22 PM EDTGender IdentityNot on file Sexual OrientationNot on filedocumented as of this encounter Progress Notes * Priyanka Turner MA - 02/09/2025 11:10 AM EST I spoke with Dr. Oliva's office in regards to pt who was referred to him on 12/16/24. The office told me that the pt was scheduled and canceled her appt. Dr. Oliva wouldn't be able to see the pt until March 06. I am going to send a new referral to [facility] documented in this encounter Plan of Treatment DateTypeDepartmentCare Team (Latest Contact Info)Lnujujdzizc96/03/2025 4:15 PM ESTRoutine [facility] FAROO[facility] [address] [place] [address] Laurie Stapleton CNM [address] [place] [address] NameTypePriorityAssociated DiagnosesOrder ScheduleAmbulatory referral to HematologyOutpatient ReferralRoutine Anemia during in third trimester ([facility]) Expected: 02/09/2025 (Approximate), Expires: 08/09/2025documented as of this encounter Visit Diagnoses Diagnosis Anemia during in third trimester ([facility]) documented in this encounter Care Teams Team MemberRelationshipSpecialtyStart DateEnd Date Lashawn Simmons DO [address] [place] [address] PCP - GeneralFamily Medicine11/10/24documented as of this encounter
--- OUTSIDE RECORDS SUMMARY | 2025-02-09 21:10 | XMS_ITS | Encounter Summary ---
Author Organization [facility] Address [address] [place] [address] Care Team Providers Care Photography Assistant Name Role Phone Lashawn Simmons DO Primary Care Provider [phone] Encounter Details DateTypeDepartmentCare Team (Latest Contact Info)Khzjpvdmmlj00/13/2025Clinisync Result Encounter [facility] Unsolicited Laurie Stapleton, CNM [address] [place] [address] Social History Tobacco UseTypesPacks/DayYears UsedDateSmoking Tobacco: NeverSmokeless [...] on one occasion?Never3PHQ-2 AnswerDate RecordedPatient Health Questionnaire-2 Pewhr024/30/2023 Estimated Date of CnthnhfnOrzvyktfNxj72/11/2025Based on last menstrual period of 05/20/2024 (Exact Date)Sex and Gender InformationValueDate RecordedSex Assigned at BirthNot on fileLegal EjhOevhtl46/15/2023 8:22 PM EDTGender IdentityNot on file Sexual OrientationNot on filedocumented as of this encounter Plan of Treatment DateTypeDepartmentCare Team (Latest Contact Info)Qpvpuwodcrp39/03/2025 4:15 PM ESTRoutine [facility] [address] [place] [address] Laurie Stapleton, CNM [address] [place] [address] documented as of this encounter Procedures Procedure NamePriorityDate/TimeAssociated DiagnosisCommentsENCOM[facility] LIVER PANEL Ejlxjtx4601/27/2025 9:39 PM EST [facility] CMP (CMP) (FOR REMOTE [facility] USE)Veelcvv4601/27/2025 9:39 PM EST [facility] BILE ACIDS FRACT ZKBYcasjga25/13/2025 9:39 PM EST ALL URIC QPMCIerwupv27/13/2025 9:39 PM EST ALL CBC WITH AUTO SBFYMbzpvfk09/13/2025 9:39 PM EST URINE CULTURE, IYDHAYZKydjcrf97/13/2025 8:30 PM EST [facility] URINE MICROSCOPIC ONSNHhsvryy39/13/2025 8:30 PM EST [facility] UA (CLEAN/CATCH) GEOCHEMIST/MICRO IF IND.Fhbnqcm9901/27/2025 8:30 PM EST documented in this encounter Results * [facility] BILE ACIDS FRACT BLD (01/27/2025 9:39 PM EST)ComponentValueRef RangeTest MethodAnalysis TimePerformed AtPathologist SignatureBILE ACIDS5.60.0 - 10.0 umol/LTBHComment: Performed at: ?? - [facility] [address] ??[id number] Concert Pianist: Elena Rosado MD, Phone: ??[phone] Specimen (Source)Anatomical Location / LateralityCollection Method / Volume Collection TimeReceived Time01/27/2025 9:39 PM EST01/27/2025 9:45 PM EST Narrative CLINISYAK - 01/30/2025 10:08 PM EST Authorizing ProviderResult TypeResult StatusMonticellonew [facility]on [facility] HospitalsLINISYNCFinal ResultPerforming OrganizationAddressCity/State/ZIP CodePhone Number [facility] * ALL URIC ACID (01/27/2025 9:39 PM EST)ComponentValueRef RangeTest Method Analysis TimePerformed AtPathologist SignatureURIC ACID2.92.6 - 6.0 mg/dLTBH Specimen (Source)Anatomical Location / LateralityCollection Method / Volume Collection TimeReceived Time01/27/2025 9:39 PM EST01/27/2025 9:45 PM EST Narrative [facility] - 01/27/2025 10:01 PM EST Authorizing ProviderResult TypeResult StatusBacharach Institute For Rehabilitationsamir Coon [facility] HospitalISYNCAuburn Community Hospitalal ResultPerforming OrganizationAddressCity/State/ZIP CodePhone Number [facility] * HM LIVER PANEL (01/27/2025 9:39 PM EST)ComponentValueRef RangeTest Method Analysis TimePerformed AtPathologist SignatureBILIRUBIN DIRECT0.20.0 - 0.2 mg/dLTBHSpecimen (Source)Anatomical Location / LateralityCollection Method / VolumeCollection TimeReceived Time01/27/2025 9:39 PM EST01/27/2025 9:45 PM EST Narrative [facility] - 01/27/2025 10:01 PM EST Authorizing ProviderResult TypeResult StatusBacharach Institute For Rehabilitationsamir Coon [facility] HospitalISYNCAuburn Community Hospitalal ResultPerforming OrganizationAddressty/State/ZIP CodePhone Number [facility] * (ABNORMAL) [facility] CMP (CMP) (FOR REMOTE [facility] USE) (01/27/2025 9:39 PM EST) ComponentValueRef RangeTest MethodAnalysis TimePerformed AtPathologist VxkmnkkvpQBXFYV021560 - 145 mmol/LTBHPOTASSIUM3.93.5 - 5.1 mmol/LTBHCHLORIDE 23189 - 107 mmol/LTBHCARBON ZLYILLO21.521.0 - 32.0 mmol/LTBHANION GAP10.4TBH MRKWWBO2966 - 106 mg/dLTBHBLOOD UREA NITROGEN7.07.0 - 18.0 mg/dLTBHCREATININE 0.42(L)0.55 - 1.02 mg/dLTBHTBH EGFR-AF KITTITIAN>60>=60 mL/min/1.73m 2TBHTBH EGFR-NON AF KITTITIAN>60>=60 mL/min/1.73m 2TBHBUN CREATININE RATIO16.7TBH CALCIUM8.78.5 - 10.1 mg/dLTBHBILIRUBIN TOTAL0.50.2 - 1.0 mg/dLTBHASPARTATE AMINO IPMQMQKFQYE4375 - 37 U/LTBHALANINE YHWABQAQTVXSTUFE5087 - 59 U/LTBH ALKALINE GRPELSSWUWG600(H)46 - 116 U/LTBHTOTAL PROTEIN6.96.4 - 8.2 g/dLTBH ALBUMIN LEVEL2.4(L)3.4 - 5.0 g/dLTBHGLOBULIN4.5g/dLTBHALBUMIN GLOBULIN RATIO 0.5TBHSpecimen (Source)Anatomical Location / LateralityCollection Method / VolumeCollection TimeReceived Time01/27/2025 9:39 PM EST01/27/2025 9:45 PM EST Narrative CLINISYNC - 01/27/2025 10:01 PM EST Authorizing ProviderResult TypeResult StatusValerie Shaggy Stapleton [facility] REGIONLINISYNCFinal ResultPerforming OrganizationAddressCity/State/ZIP CodePhone Number [facility] * (ABNORMAL) ALL CBC WITH AUTO DIFF (01/27/2025 9:39 PM EST)ComponentValueRef RangeTest MethodAnalysis TimePerformed AtPathologist SignatureTBH WBC10.34.0 - 11.0 10 3/uLTBHTBH RBC3.34(L)4.20 - 5.40 10 6/uLTBHTBH HGB8.3(L)12.0 - 16.0 g/dLTBHTBH HCT26.3(L)36.0 - 48.0 %TBHTBH MCV78.7(L)81.0 - 99.0 fLTBHTBH MCH 24.9(L)26.7 - 34.0 pgTBHTBH MCHC31.629.9 - 35.2 g/dLTBHTBH RDW15.9(H)11.0 - 15.0 %TBHTBH IFL884302 - 450 10 3/uLTBHTBH MPV9.4(L)9.5 - 13.5 [...] 9:45 PM EST Narrative CLINISYNC - 01/27/2025 9:57 PM EST Authorizing ProviderResult TypeResult StatusValenew Stapleton [facility]IONLINISYNCFinal ResultPerforming OrganizationAddressCity/State/ZIP CodePhone Number [facility] * URINE CULTURE, ROUTINE (01/27/2025 8:30 PM EST)ComponentValueRef RangeTest MethodAnalysis TimePerformed AtPathologist SignatureURINE CULTURE, ROUTINE ??Urine Culture, Routine TBHURINE CULTURE, ROUTINEMixed urogenital floraTBHURINE CULTURE, ROUTINELess than 10,000 colonies/mLTBHURINE CULTURE, ROUTINEPerformed at: [facility] LabBaraga County Memorial HospitalTBHURINE CULTURE, [id number] [place], [place] [id number] CULTURE, ROUTINELab Director: Nate Kay PhD, Phone: [phone] Specimen (Source)Anatomical Location / LateralityCollection Method / Volume Collection TimeReceived Time01/27/2025 8:30 PM EST01/27/2025 8:41 PM EST Narrative CLINISYAK - 01/29/2025 9:07 PM EST Authorizing ProviderResult TypeResult StatusLaurie Stapleton CNMLAB BLOOD ORDERABLESFinal ResultPerforming OrganizationAddressCity/State/ZIP CodePhone Number CLINISYNC [facility] * (ABNORMAL) [facility] URINE MICROSCOPIC ONLY (01/27/2025 8:30 PM EST)ComponentValue Ref RangeTest MethodAnalysis TimePerformed AtPathologist SignatureTBH ENE48-11 (A)NONE SEEN #/HPFTBHTBH RBC0-20 - 2 #/HPFTBHBACTERIA URINEMODERATE(A)NONE SEEN #/HPFTBHMUCUS URINEMODERATE(A)NONE SEENTBHSQUAMOUS EPITHELIAL CELL URINE MANY(A)NONE/RARE #/LPFTBHCRYSTALS SEEN?None SeenNone Seen #/HPFTBHCAST SEEN? NONE SEENNONE SEEN #/LPFTBHURINE CULTURE INDICATEDYES-LCTBHComment: --- ??01/27/252127 --- Ur Culture Ind previously reported as: ??YES-[facility] Specimen (Source)Anatomical Location / LateralityCollection Method / Volume Collection TimeReceived Time01/27/2025 8:30 PM EST01/27/2025 8:41 PM EST Narrative SARITAAK - 01/27/2025 9:29 PM EST Authorizing ProviderResult TypeResult StatusMonticellonew Stapleton [facility]IONLINISYNCEdited Result - FinalPerforming OrganizationAddressCity/State/ZIP CodePhone Number SARITAAK TB * (ABNORMAL) [facility] UA (CLEAN/CATCH) GEOCHEMIST/MICRO IF IND. (01/27/2025 8:30 PM EST) ComponentValueRef RangeTest MethodAnalysis TimePerformed AtPathologist SignatureCOLOR URINEDK YELLOWYELLOWTBHCLARITY URINESL CLOUDYCLEARTBHSPECIFIC GRAVITY URINE1.0251.005 - 1.025TBHPH URINE6.05.0 - 9.0TBHPROTEIN URINETRACE NEG/TRACE mg/dLTBHGLUCOSE URINE UANEGATIVENEGATIVE mg/dLTBHBILIRUBIN URINE NEGATIVENEGATIVETBHKETONES URINENEGATIVENEGATIVE mg/dLTBHBLOOD URINENEGATIVE NEGATIVETBHNITRITE URINENEGATIVENEGATIVETBHUROBILINOGEN URINE4.0(A)0.2 - 1.0 EU/dLTBHLEUKOCYTE ESTERASE URINESMALL(A)NEGATIVETBHURINE MICROSCOPIC INDICATED YESTBHSpecimen (Source)Anatomical Location / LateralityCollection Method / VolumeCollection TimeReceived Time01/27/2025 8:30 PM EST01/27/2025 8:41 PM EST Narrative CLINISYNC - 01/27/2025 9:29 PM EST Authorizing ProviderResult TypeResult StatusValerie [facility] CenterLINISYNCFinal ResultPerforming OrganizationAddressCity/State/ZIP CodePhone Number [facility]AW[facility] documented in this encounter Visit Diagnoses Not on filedocumented in this encounter Care Teams Team MemberRelationshipSpecialtyStart DateEnd Date Lashawn Simmons DO [address] [facility] [place] [address] PCP - GeneralFamily Medicine11/10/24documented as of this encounter
[2025-02-09 21:30] VITALS: BP 116/75; PULSE 78
[2025-02-09 21:36] LABS: Glucose Urine UA NEGATIVE (NEGATIVE)
[2025-02-09 21:42] LABS: Cast Seen? NONE SEEN #/LPF (NONE SEEN); Crystals Seen? None Seen #/HPF (None Seen); Urine Culture Indicated YES-FRMC
[2025-02-09] MEDS: 0.9 % SODIUM CHLORIDE 1,000 ML 1000 ML IV (23:20)
[2025-02-10] VITALS (45 sets, daily range): BP systolic 96–175; BP diastolic 51–86; PULSE 56–153; TEMP 36.2–36.5
[2025-02-10] MEDS: 0.9 % SODIUM CHLORIDE 1,000 ML 125 ML IV ×2 (00:22→08:04)
[2025-02-10] MEDS: AMPICILLIN SODIUM 2,000 MG in 0.9 % SODIUM CHLORIDE 100 ML 200 MG IV (01:07)
[2025-02-10 04:16] LABS: Hematocrit 26.7 % (36.0-48.0); Hemoglobin 8.2 g/dL (12.0-16.0); Mean Corpuscular HGB Conc 30.7 g/dL (29.9-35.2); Mean Corpuscular Hemoglobin 23.6 pg (26.7-34.0); Mean Corpuscular Volume 76.9 fL (81.0-99.0); Platelet Count 204 10^3/uL (150-450); Red Blood Count 3.47 10^6/uL (4.20-5.40); White Blood Count 9.2 10^3/uL (4.0-11.0)
[2025-02-10] MEDS: AMPICILLIN SODIUM 1,000 MG in 0.9 % SODIUM CHLORIDE 50 ML 100 MG IV ×2 (05:23→09:04)
[2025-02-10] MEDS: ROPIVACAINE HCL/PF 400 MG/200 ML PREMIX 6 MG EPIDURAL (05:23)
[2025-02-10 09:37] LABS: Cannabinoid Screen Urine NEGATIVE (NEGATIVE); Methamphetamines Screen Urine NEGATIVE (NEGATIVE); Tricyclic Antidepressant Urine NEGATIVE (NEGATIVE)
[2025-02-10] MEDS: OXYTOCIN/0.9 % SODIUM CHLORIDE 20 UNITS/1,000 ML PLAST..BAG 999 UNIT IV (11:48)
--- NOTE | 2025-02-10 12:32 | PM.OBPRCVD ---
Procedure Induction method: artificial rupture of membranes Delivery augmentation: rupture of membranes Delivery monitor: external FHT and external uterine Route of delivery: Episiotomy Description: none L&D Laceration Description: vaginal - 1st degree Delivery repair: Chromic Estimated blood loss (mL): 300 Anesthesia type: Epidural Disposition: floor Complications: none Infant Delivery date: 02/10/25 Gender: male presentation: vertex Placental delivery description: Spontaneous cord description: 3 Vessels heart rate - 1 minute: 100 bpm or Greater respiratory effort - 1 minute: Spontaneous/Strong Cry muscle tone - 1 minute: Active Movement reflex response - 1 minute: Prompt Response color - 1 minute: Bluish Hands or Feet total score - 1 minute: 9 heart rate - 5 minute: 100 bpm or Greater respiratory effort - 5 minute: Spontaneous/Strong Cry muscle tone - 5 minute: Active Movement reflex response - 5 minute: Prompt Response color - 5 minute: [place]/No Cyanosis total score - 5 minute: 10
[2025-02-10] MEDS: IBUPROFEN 600 MG TABLET PO ×2 (15:11→23:04)
[2025-02-10] MEDS: BENZOCAINE/MENTHOL 85 GRAM SPRAY BOTTLE 1 APPLIC TOPICAL (15:11)
[2025-02-10] MEDS: ACETAMINOPHEN 325 MG TABLET 650 MG PO (20:27)
[2025-02-10] MEDS: FERROUS SULFATE 325 MG TABLET PO (20:28)
[2025-02-11 00:28] VITALS: BP 102/63; PULSE 78; TEMP 36.4
[2025-02-11 06:49] LABS: Hematocrit 26.7 % (36.0-48.0); Hemoglobin 8.0 g/dL (12.0-16.0); Immature Granulocytes Abs Auto 0.20 10^3/uL (0.00-0.03); Immature Granulocytes Pct Auto 1.2 % (0.0-0.5); Lymphocytes Absolute Auto 3.9 10^3/uL (1.2-3.8); Mean Corpuscular HGB Conc 30.0 g/dL (29.9-35.2); Mean Corpuscular Hemoglobin 23.4 pg (26.7-34.0); Mean Corpuscular Volume 78.1 fL (81.0-99.0); Platelet Count 376 10^3/uL (150-450); Red Blood Count 3.42 10^6/uL (4.20-5.40); White Blood Count 16.3 10^3/uL (4.0-11.0)
[2025-02-11 07:54] VITALS: BP 110/66; PULSE 79
[2025-02-11 08:07] VITALS: TEMP 36.6
[2025-02-11] MEDS: IBUPROFEN 600 MG TABLET PO (10:11)
[2025-02-11] MEDS: DOCUSATE SODIUM 100 MG CAPSULE PO ×2 (10:12→20:54)
--- NOTE | 2025-02-11 10:34 | PM.OBPN ---
OB - PN: Subj Subjective Patient comments: no complaints and pain well controlled [place] status: doing well and bottle Narrative: would like to try pumping some milk as well Exam Constitutional Vital Signs, click to edit/add: Last Vital Signs Temp 97.9 F 02/11/25 08:07 Pulse 79 02/11/25 07:54 Resp 16 02/11/25 08:07 BP 110/66 02/11/25 07:54 O2 Del Method Room Air 02/11/25 00:30 Common normals: no apparent distress General appearance: comfortable Speculum exam - cervix: other (minimal perineal edema) Bimanual exam- vagina & uterus: uterus non-tender and other (firm below umbilicus) OB/external & speculum: deferred Manual OB Exam: deferred Uterus palpation: other (lochia normal) Results Labs Labs: Short CBC 02/11/25 Range/Units 06:20 WBC 16.3 H (4.0-11.0) 10^3/uL Hgb 8.0 L (12.0-16.0) g/dL Hct 26.7 L (36.0-48.0) % Plt Count 376 (150-450) 10^3/uL Urinary Catheter Management Urinary Catheter Management removed at delivery: Cath placed during this visit: no Urethral indwelling: No OB - PN: A/P Plan - Vaginal Delivery day: 1 Plan: routine care Time Spent with Patient Time: Total time spent is greater than 50% in coordination of care (as documented) at patient's floor/unit and/or counseling patient: Total time spent with greater than 50% in coordination of care (as documented) at patient's floor/unit and/or counseling patient: less than 15 minutes
[2025-02-11 16:21] VITALS: TEMP 36.7
--- NOTE | 2025-02-11 16:24 | PC.NURSE ---
1130 Bath demo given to pt and significant other and baby care teaching record care, diapering and SIDS prevention reviewed, watched videos on mom and baby, SIDs prevention and the period of the purple cry and explained contents of teaching folder. pt and partner attentive
[2025-02-11] MEDS: FERROUS SULFATE 325 MG TABLET PO (20:54)
[2025-02-11 23:33] VITALS: BP 111/70; PULSE 100; TEMP 36.7
[2025-02-12 09:38] VITALS: BP 132/72; PULSE 92
--- NOTE | 2025-02-12 13:44 | PM.OBDS ---
DS: Providers Provider Date of admission: 02/10/25 04:00 Primary care physician: Non-Staff PhysicianMD Consults: 02/10/25 Consult to Anesthesiology Routine Consulting Provider: Alphonse Harley Reason for consultation: Epidural Attending physician on discharge: JEFFREY LÓPEZ Discharging clinician: JEFFREY LÓPEZ DS: Diagnosis Discharge Diagnosis (1) Term delivered: Assessment and plan: pt delivered without augmentation routine PP course Plan discharge home today OB - DS: Summary Peripartum Data - Vaginal Delivery Laceration description: vaginal - 1st degree Episiotomy Description: none Complications complications: none Delivery method: spontaneous vaginal delivery Gender: male Discharge plan: home Status at Discharge Functional status at discharge: independent ambulation Overall status at discharge: patient is back to baseline Time Spent with Patient Time attestation: Total time spent providing and/or coordinating discharge services: Time spent: less than 30 minutes Exam Constitutional Vital Signs, click to edit/add: Last Vital Signs Temp 98.1 F 02/11/25 23:33 Pulse 92 H 02/12/25 09:38 Resp 14 02/11/25 16:21 BP 132/72 02/12/25 09:38 O2 Del Method Room Air 02/11/25 23:30 Bimanual exam- vagina & uterus: uterus non-tender OB/external & speculum: deferred Manual OB Exam: deferred Extremity Common normals: full ROM and no calf tenderness DS: Data Data Completed and Pending Labs on day of discharge: Preliminary micro results at discharge 02/09/25 21:15 Urine Culture - Preliminary Urine,Clean Catch Pending - Specimen sent to [facility] Discharge Plan Discharge Disposition: Home, Self-Care Condition: Good Assessment: pt has done well and will try to pump to give baby breastmile Health Concerns: anemia Plan of Treatment: discharge home today. Encouraged compliance with taking iron Discharge Medications: No Action No Known Home Medications Print Language: Kiswahili Forms: Vaginal Delivery - Discharge, Portal Instructions Follow Up Appointments: 6w
== END 2025-02-12 14:05 | disposition home or self-care (01) | DRG 807 ==
PROVIDERS: Midwife; Obstetrics & Gynecology; Admitting Provider Obstetrics & Gynecology; Visit Provider Obstetrics & Gynecology
DX: O99.824 Streptococcus B carrier state complicating childbirth (principal); Z37.0 Single live birth; O70.0 First degree perineal laceration during delivery; Z3A.37 37 weeks gestation of pregnancy; O90.81 Anemia of the puerperium
CPT/HCPCS: 36415; 51702; 59025; 59050; 59410; 80307; 81001; 84112; 85025; 85027; 86850; 86900; 86901; 87086; G0378; J0290; J2300; J2795